=== PATIENT | female | born 1930 | race Caucasian/White ===

== ENCOUNTER → 2016-07-31 | Outpatient (CLI) | payer MEDICARE, OTHER ==
[~2016-07-31] MED LIST: AC500T PO; ACHYD1T PO; AMLO2.5T PO; ASP81CT PO; CHOL200035 PO; CLOP75TA PO; DCS100C PO; DICL50TA3 PO; HYDR-91 PO; IBP800T PO; IBUP-15 PO; IBUP-30 PO; IRON150C6 PO; LEVO88TA26 PO; METO-272 PO; NAPR220T76 PO; SULF1TAB35 PO; SULF1TAB38 PO; TRAM50TA2 PO
--- NOTE | 2016-08-02 20:28 | Diagnostic Imaging Report ---
Bilateral screening mammogram. The current study was also evaluated with a Computer Aided Detection (CAD) system. INDICATION: Screening. No current complaints stated on the questionnaire. COMPARISON: 07/08/15. FINDINGS: The breasts are composed of heterogeneously dense parenchyma which may decrease mammographic sensitivity. Vascular calcifications are seen. Other benign-appearing calcifications are also noted with minimal change. Allowing for technique and positional differences, no suspicious change is seen. IMPRESSION: Dense breasts with no definite change. ACR BI-RADS Category 2: Benign findings. Result letter will be mailed to the patient. Note: At least 10% of breast cancer is not imaged by mammography. Dictated by: Dictated on workstation # [id number]
== END ==
LOC: RAD 11:09
PROVIDERS: ATTEND Internal Medicine
DX: Z12.31 Encounter for screening mammogram for malignant neoplasm of breast (principal)
CPT/HCPCS: 77067

== ENCOUNTER 2016-08-17 07:20 | Outpatient (CLI) | payer MEDICARE, OTHER ==
[~2016-08-17] VITALS: Ht 160 cm; Wt 63.5 kg
[2016-08-17] MEDS ORDERED: BUPIVACAINE 0.25% 30 ML (SENSORCAINE) VIAL ONE (07:21)
[2016-08-17] MEDS ORDERED: LIDOCAINE 1% INJ 20 ML (XYLOCAINE) VIAL ONE (07:21)
[2016-08-17] MEDS ORDERED: TRIAMCINOLONE ACET (KENALOG-40) 40 MG/ML 1 ML VIAL ONE (07:21)
[2016-08-17 08:19] VITALS: BP 168/92
--- NOTE | 2016-08-17 12:39 | Pain Medicine-Procedure ---
Procedure Pre-Op/Post-Op Diagnosis Diagnosis: sacrococcygeal disorder Indications for Operation Hip pain Attending Surgeon Gato Procedure Date of Service: Aug 17, 2016 Procedure: Flouroscopic guided bilateral sacroiliac joint injection PROCEDURE IN DETAIL: After obtaining informed consent from the patient, the patient's chart was reviewed. The patient was then brought to the procedure room and placed in the prone position. A time out was performed. The back was prepped with antiseptic solution and under fluoroscopic guidance the patient's sacroiliac joint on both sides was identified. Attention was first turned to the right sacroiliac joint injection where 2 mL's of 1% lidocaine was used to anesthetize the skin and then two 22-gauge 3.5 inch spinal needles were inserted and advanced under flouroscopic guidance until they were in the lower 1 /3 of the right sacroiliac joint. Next, attention was then turned to the left sacroiliac joint injection where 2 mL's of 1% lidocaine was used to anesthetize the skin and then two 22-gauge 3.5 inch spinal needles were inserted and advance under flouroscopic guidance until they were in the lower 1/3 of the sacroiliac joint on the left side. After negative aspiration, each needle was injected with 40 mg of Kenalog along with 2 mL's of 0.25% marcaine. All needles were then flushed with 1% lidocaine and then removed. Band-Aids were applied to all the sites and the patient tolerated the procedure well and was taken to the recovery area in stable condition. Complications None MILADYS HEIN MD Aug 17, 2016 12:39 pm
== END 2016-08-17 08:20 ==
LOC: CARD 07:20
PROVIDERS: ATTEND Pain Medicine Pain Medicine
DX: M53.3 Sacrococcygeal disorders, not elsewhere classified (principal); M47.816 Spondylosis without myelopathy or radiculopathy, lumbar region; Z79.899 Other long term (current) drug therapy
CPT/HCPCS: 27096

== ENCOUNTER 2017-01-27 06:07 | Emergency (ER) | payer MEDICARE, OTHER ==
[~2017-01-27] VITALS: Ht 160 cm; Wt 63.5 kg
[2017-01-27 06:26] LABS: BASOPHILS # (AUTO) 0.1 10^3/uL (0.0-0.1); BASOPHILS % (AUTO) 1 % (0-10); EOSINOPHILS # (AUTO) 0.6 10^3/uL (0.0-0.3); EOSINOPHILS % (AUTO) 7 % (0-10); LYMPHOCYTES # (AUTO) 2.8 X 10^3 (1.0-4.0); LYMPHOCYTES % (AUTO) 33 % (12-44); MEAN CORPUSCULAR HEMOGLOBIN 30 PG (25-34); MEAN CORPUSCULAR HGB CONC 32 G/DL (32-36); MEAN CORPUSCULAR VOLUME 94 FL (80-99); MEAN PLATELET VOLUME 10.9 FL (7.4-10.4); MONOCYTES % (AUTO) 12 % (0-12); NEUTROPHILS % (AUTO) 47 % (42-75); PLATELET COUNT 317 10^3/uL (130-400); RED BLOOD COUNT 3.98 10^6/uL (4.35-5.85); RED CELL DISTRIBUTION WIDTH 12.6 % (10.0-14.5); WHITE BLOOD COUNT 8.5 10^3/uL (4.3-11.0)
[2017-01-27 06:37] LABS: ALANINE AMINOTRANSFERASE 18 U/L (0-55); ANION GAP 11 MMOL/L (5-14); ASPARTATE AMINO TRANSFERASE 18 U/L (5-34); BILIRUBIN,TOTAL 0.5 MG/DL (0.1-1.0); BLOOD UREA NITROGEN 38 MG/DL (7-18); BUN/CREATININE RATIO 26; CALCIUM 10.5 MG/DL (8.5-10.1); CARBON DIOXIDE 23 MMOL/L (21-32); CHLORIDE 103 MMOL/L (98-107); CREATININE SERUM 1.44 MG/DL (0.60-1.30); GFR ESTIMATED 35; GLUCOSE 101 MG/DL (70-105); POTASSIUM 4.5 MMOL/L (3.6-5.0); SODIUM 137 MMOL/L (135-145); TOTAL PROTEIN 7.2 GM/DL (6.4-8.2)
[2017-01-27 06:42] LABS: TROPONIN I < 0.30 NG/ML (<0.30)
--- NOTE | 2017-01-27 06:42 | ED Chest Pain ---
General Chief Complaint: Chest Pain Stated Complaint: NECK Nursing Triage Note: BROUGHT IN BY [facility] FOR C/O CHEST PAIN STAARTING APPROX 0100 Nursing Sepsis Screen: No Definite Risk Source: patient Exam Limitations: no limitations History of Present Illness Time seen by provider: 06:38 Initial Comments The patient is an 86-year-old white female known to me for many years. She relates that she was awakened at 0100 with pressure and pain in her left parasternal area. There was then radiation to the jaw and down the left arm. She had never experienced pain like this before. Ultimately they called the ambulance and she was brought here. The pain is abating at this time. She had taken an aspirin and was given a nitroglycerin en route. She takes metoprolol for hypertension. There is no history of cigarette smoking, diabetes, hypercholesterolemia. 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 Associated Symptoms: denies symptoms Allergies and Home Medications Allergies Coded Allergies: diclofenac potassium (Verified Allergy, Mild, RASH, 05/07/11) Home Medications Acetaminophen 500 Mg Tablet, 2 TAB PO daily prn PRN for PAIN, (Reported) prn pain Cholecalciferol (Vitamin D3) 2,000 Unit Capsule, 2,000 UNIT PO DAILY, (Reported) Iron Polysaccharides Complex 150 Mg Cap, 150 MG PO BID WITH MEALS, #60 Ref 0 Prescribed by: ELAINE GONSALEZ on 07/09/14 1111 Levothyroxine Sodium 88 Mcg Tablet, 88 MCG PO DAILY, (Reported) Metoprolol Succinate 50 Mg Tab.sr.24h, 50 MG PO DAILY, (Reported) Review of Systems Constitutional: see HPI EENTM: No Symptoms Reported Respiratory: No Symptoms Reported Cardiovascular: See HPI, Chest Pain Gastrointestinal: No Symptoms Reported Genitourinary: No Symptoms Reported Musculoskeletal: no symptoms reported Skin: no symptoms reported Psychiatric/Neurological: No Symptoms Reported Endocrine: No Symptoms Reported Hematologic/Lymphatic: No Symptoms Reported Past Befiidn-Nrsmpk-Gjzgzn Hx Patient Social History Alcohol Use: Denies Use Recreational Drug Use: No Smoking Status: Never a Smoker 2nd Hand Smoke Exposure: No Recent Foreign Travel: No Contact w/Someone Who Travel: No Recent Infectious Disease Expo: No Recent Hopitalizations: No Immunizations Up To Date Tetanus Booster (TDap): More than 5yrs Date of Pneumonia Vaccine: Jan 20, 2013 Date of Influenza Vaccine: Jan 20, 2014 Seasonal Allergies Seasonal Allergies: No Surgeries History of Surgeries: Yes (I & D ABSCESS ON LEG, left endarterectomy) Surgeries: Tonsillectomy Respiratory History of Respiratory Disorde: No Cardiovascular History of Cardiac Disorders: Yes Cardiac Disorders: Hypertension Neurological History of Neurological Disord: No Reproductive System Hx Reproductive Disorders: Yes (ANT REPAIR) Sexually Transmitted Disease: No Genitourinary History of Genitourinary Disor: No Gastrointestinal History of Gastrointestinal Di: No Musculoskeletal History of Musculoskeletal Dis: Yes Musculoskeletal Disorders: Arthritis Endocrine History of Endocrine Disorders: Yes Endocrine Disorders: Hypothyroidsim HEENT History of HEENT Disorders: No Cancer History of Cancer: No Psychosocial History of Psychiatric Problem: No Integumentary History of Skin or Integumenta: No Blood Transfusions History of Blood Disorders: No Family Medical History Family Medial History: Abdominal aortic aneurysm 19 FATHER Alcoholism 19 FATHER Cardiovascular disease 19 FATHER 19 MOTHER G8 BROTHER Hypertension 19 FATHER 19 MOTHER G8 BROTHER Myocardial infarction 19 MOTHER No Family History of: AIDS Alzheimer's disease Arthritis Asthma Cancer of mouth Colon cancer Completed stroke Dementia Diabetes mellitus Drug abuse Kidney disease Parkinson's disease Prostate cancer Psychosocial problem Respiratory disorder Seizure disorder Thyroid disease Tuberculosis Physical Exam Vital Signs Vital Sign - Last 12Hours 01/27/17 06:14 Temp 97.2 Pulse 88 Resp 18 B/P (MAP) 174/91 Pulse Ox 96 O2 Delivery Nasal Cannula O2 Flow Rate 2.0 Capillary Refill : Less Than 3 Seconds General Appearance: Mild Distress HEENT: Normal ENT Inspection Neck: Normal Inspection Respiratory: Chest Non Tender, Lungs Clear, Normal Breath Sounds, No Accessory Muscle Use, No Respiratory Distress Cardiovascular: Regular Rate, Rhythm, No Edema, No Gallop, No JVD, Normal Peripheral Pulses, Systolic Murmur (grade 2 right and left second intercostal space and left sternal border) Gastrointestinal: Normal Bowel Sounds, No Organomegaly, No Pulsatile Mass, Non Tender Extremity: Normal Capillary Refill, Normal Inspection, Normal Range of Motion, Non Tender, No Calf Tenderness, No Pedal Edema Neurologic/Psychiatric: Alert, Oriented x3, No Motor/Sensory Deficits, Normal Mood/Affect Skin: Normal Color, Warm/Dry Lymphatic: No Adenopathy Progress/Results/Core Measures Results/Orders Lab Results Laboratory Tests Test 01/27/17 06:10 01/27/17 09:09 Range/Units White Blood Count 8.5 4.3-11.0 10^3/uL Red Blood Count 3.98 L 4.35-5.85 10^6/uL Hemoglobin 12.1 11.5-16.0 G/DL Hematocrit 37 35-52 % Mean Corpuscular Volume 94 80-99 FL Mean Corpuscular Hemoglobin 30 25-34 PG Mean Corpuscular Hemoglobin Concent 32 32-36 G/DL Red Cell Distribution Width 12.6 10.0-14.5 % Platelet Count 317 130-400 10^3/uL Mean Platelet Volume 10.9 H 7.4-10.4 FL Neutrophils (%) (Auto) 47 42-75 % Lymphocytes (%) (Auto) 33 12-44 % Monocytes (%) (Auto) 12 0-12 % Eosinophils (%) (Auto) 7 0-10 % Basophils (%) (Auto) 1 0-10 % Neutrophils # (Auto) 4.0 1.8-7.8 X 10^3 Lymphocytes # (Auto) 2.8 1.0-4.0 X 10^3 Monocytes # (Auto) 1.0 0.0-1.0 X 10^3 Eosinophils # (Auto) 0.6 H 0.0-0.3 10^3/uL Basophils # (Auto) 0.1 0.0-0.1 10^3/uL Sodium Level 137 135-145 MMOL/L Potassium Level 4.5 3.6-5.0 MMOL/L Chloride Level 103 98-107 MMOL/L Carbon Dioxide Level 23 21-32 MMOL/L Anion Gap 11 5-14 MMOL/L Blood Urea Nitrogen 38 H 7-18 MG/DL Creatinine 1.44 H 0.60-1.30 MG/DL Estimat Glomerular Filtration Rate 35 BUN/Creatinine Ratio 26 Glucose Level 101 70-105 MG/DL Calcium Level 10.5 H 8.5-10.1 MG/DL Total Bilirubin 0.5 0.1-1.0 MG/DL Aspartate Amino Transf (AST/SGOT) 18 5-34 U/L Alanine Aminotransferase (ALT/SGPT) 18 0-55 U/L Alkaline Phosphatase 76 40-136 U/L Troponin I < 0.30 < 0.30 <0.30 NG/ML Total Protein 7.2 6.4-8.2 GM/DL Albumin 4.0 3.2-4.5 GM/DL My Orders Orders - JJ YO MD Cbc With Automated Diff (01/27/17 06:18) Comprehensive Metabolic Panel (01/27/17 06:18) Troponin I (01/27/17 06:18) Ekg Tracing (01/27/17 06:18) Chest 1 View, Ap/Pa Only (01/27/17 06:18) Ekg Tracing (01/27/17 09:24) Troponin I (01/27/17 10:18) Medications Given in ED Current Medications Medications Dose Ordered Sig/Aftab Route Start Time Stop Time Status Last Admin Dose Admin Metoprolol Tartrate 5 mg ONCE ONCE IV 01/27/17 09:30 01/27/17 09:31 DC 01/27/17 10:33 5 MG Vital Signs/I&O Vital Sign - Last 12Hours 01/27/17 01/27/17 06:14 06:14 Temp 97.2 Pulse 88 Resp 18 B/P (MAP) 174/91 Pulse Ox 96 O2 Delivery Nasal Cannula Room Air O2 Flow Rate 2.0 Blood Pressure Mean: 118 Departure Communication (Admissions) Progress Notes 0750 discussed the case with Dr. Greenberg who is cardiology call today. We agreed on a plan to repeat a troponin and if negative to discharge with nitroglycerin for an outpatient stress test in the morning. 0900 Dr. Greenberg here and troponin number [address] Greenberg discovered that she had a normal coronary angiogram 4 years ago and had seen PHILIPPE Chin. Therefore she is to see PHILIPPE Chin in the a.m. to schedule additional testing Impression Impression: Primary Impression: chest pain Disposition: 01 HOME, SELF-CARE Condition: Improved Departure-Patient Inst. Decision time for Depature: 11:18 Referrals: BARBY ARBOLEDA MD (PCP/Family) Primary Care Physician Patient Instructions: Chest Pain (DC) Add. Discharge Instructions: All discharge instructions reviewed with patient and/or family. Voiced understanding Take aspirin and metoprolol daily. Call PHILIPPE Chin's office, [phone], in the a.m. for an appointment tomorrow. JJ YO MD Jan 27, 2017 06:42
--- NOTE | 2017-01-27 08:02 | Diagnostic Imaging Report ---
EXAMINATION: Chest radiograph, portable AP view. DATE: January 27, 2017 at 0641 hours. INDICATION: 86-year-old female, chest pain. COMPARISON: June 23, 2014. FINDINGS: Stable overall appearance of the cardiomediastinal silhouette. There is no identified pneumothorax. There is no large pleural effusion. There is no identified focal airspace consolidation. IMPRESSION: No identified acute cardiopulmonary abnormality. Dictated by: Dictated on workstation # [id number]
[2017-01-27] MEDS ORDERED: meTOprolol 5 MG/5 ML (LOPRESSOR) VIAL IV ONE (09:30)
--- NOTE | 2017-01-27 09:30 | Consultation-Cardiology ---
HPI-Cardiology Cardiology Consultation Date of Consultation 01/27/17 Date of Admission Time Seen by Provider: 09:24 Indication: Chest pain HPI 86 years old lady with history of coronary artery disease, had a cardiac catheterization showing no obstructive disease [place] [address] Rivas. History of hypertension. Was in her usual state of health, started having chest pain described it as dull in nature on the left side of her chest radiating to the left arm persisted until around 5 a.m. when she called ambulance by the time the ambulance arrived she was feeling somewhat better, she was given aspirin and nitroglycerin with complete relief of her pain, brought to the emergency room since then did not have any further episode of chest pain, denied any palpitation, syncope or near syncopal episode, reporting mild shortness of breath on exertion which has been worsening recently. 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, prefer to go home Home Medications & Allergies Allergies: Coded Allergies: diclofenac potassium (Verified Allergy, Mild, RASH, 05/07/11) Home Medication List Reviewed: Yes LRR-Vrrwej-Gycfre Hx Patient Social History Marital Status: Employed/Student: retired Alcohol Use: Denies Use Recreational Drug Use: No Smoking Status: Never a Smoker 2nd Hand Smoke Exposure: No Recent Foreign Travel: No Recent Infectious Disease Expo: No Recent Hopitalizations: No Immunizations Up To Date Tetanus Booster (TDap): More than 5yrs Date of Pneumonia Vaccine: Jan 20, 2013 Date of Influenza Vaccine: Jan 20, 2014 Past Medical History past medical history as discussed below Family Medical History Family History: 19 FATHER Abdominal aortic aneurysm Alcoholism Cardiovascular disease Hypertension 19 MOTHER Cardiovascular disease Hypertension Myocardial infarction G8 BROTHER Cardiovascular disease Hypertension Constitutional: no symptoms reported, see HPI EENTM: see HPI, no symptoms reported Respiratory: no symptoms reported, see HPI, No cough, dyspnea on exertion, No hemoptysis, No orthopnea, No phlegm, No short of breath, No stridor, No wheezing , No other Cardiovascular: see HPI, chest pain, No edema, No Hx of Intervention, No palpitations, No syncope, No vascular heart diseas, No other Gastrointestinal: no symptoms reported, see HPI Genitourinary: no symptoms reported, see HPI Musculoskeletal: no symptoms reported, see HPI Skin: no symptoms reported, see HPI Psychiatric/Neurological: No Symptoms Reported, See HPI Reviewed Test Results Reviewed Test Results Lab Laboratory Tests Test 01/27/17 06:10 Range/Units White Blood Count 8.5 4.3-11.0 10^3/uL Red Blood Count 3.98 L 4.35-5.85 10^6/uL Hemoglobin 12.1 11.5-16.0 G/DL Hematocrit 37 35-52 % Mean Corpuscular Volume 94 80-99 FL Mean Corpuscular Hemoglobin 30 25-34 PG Mean Corpuscular Hemoglobin Concent 32 32-36 G/DL Red Cell Distribution Width 12.6 10.0-14.5 % Platelet Count 317 130-400 10^3/uL Mean Platelet Volume 10.9 H 7.4-10.4 FL Neutrophils (%) (Auto) 47 42-75 % Lymphocytes (%) (Auto) 33 12-44 % Monocytes (%) (Auto) 12 0-12 % Eosinophils (%) (Auto) 7 0-10 % Basophils (%) (Auto) 1 0-10 % Neutrophils # (Auto) 4.0 1.8-7.8 X 10^3 Lymphocytes # (Auto) 2.8 1.0-4.0 X 10^3 Monocytes # (Auto) 1.0 0.0-1.0 X 10^3 Eosinophils # (Auto) 0.6 H 0.0-0.3 10^3/uL Basophils # (Auto) 0.1 0.0-0.1 10^3/uL Sodium Level 137 135-145 MMOL/L Potassium Level 4.5 3.6-5.0 MMOL/L Chloride Level 103 98-107 MMOL/L Carbon Dioxide Level 23 21-32 MMOL/L Anion Gap 11 5-14 MMOL/L Blood Urea Nitrogen 38 H 7-18 MG/DL Creatinine 1.44 H 0.60-1.30 MG/DL Estimat Glomerular Filtration Rate 35 BUN/Creatinine Ratio 26 Glucose Level 101 70-105 MG/DL Calcium Level 10.5 H 8.5-10.1 MG/DL Total Bilirubin 0.5 0.1-1.0 MG/DL Aspartate Amino Transf (AST/SGOT) 18 5-34 U/L Alanine Aminotransferase (ALT/SGPT) 18 0-55 U/L Alkaline Phosphatase 76 40-136 U/L Troponin I < 0.30 <0.30 NG/ML Total Protein 7.2 6.4-8.2 GM/DL Albumin 4.0 3.2-4.5 GM/DL Physical Exam Vital Signs Vital Sign - Last 12Hours 01/27/17 06:14 Temp 97.2 Pulse 88 Resp 18 B/P (MAP) 174/91 Pulse Ox 96 O2 Delivery Nasal Cannula O2 Flow Rate 2.0 Capillary Refill : Less Than 3 Seconds General Appearance: No Apparent Distress, WD/WN Eyes: Bilateral Eye Normal Inspection, Bilateral Eye PERRL, Bilateral Eye EOMI HEENT: PERRL/EOMI, TMs Normal, Normal ENT Inspection, Pharynx Normal Neck: Full Range of Motion, Normal Inspection, Non Tender, Supple, Carotid Bruit Respiratory: Chest Non Tender, Lungs Clear, Normal Breath Sounds, No Accessory Muscle Use, No Respiratory Distress Cardiovascular: Regular Rate, Rhythm, No Edema, No Gallop, No JVD, No Murmur, Normal Peripheral Pulses Gastrointestinal: Normal Bowel Sounds, No Organomegaly, No Pulsatile Mass, Non Tender, Soft Back: Normal Inspection, No CVA Tenderness, No Vertebral Tenderness Extremity: Normal Capillary Refill, Normal Inspection, Normal Range of Motion, Non Tender, No Calf Tenderness, No Pedal Edema Neurologic/Psychiatric: Alert, Oriented x3, No Motor/Sensory Deficits, Normal Mood/Affect Skin: Normal Color, Warm/Dry Lymphatic: No Adenopathy A/P-Cardiology Admission Diagnosis (1) Chest pain Qualifiers: Status: Acute Assessment & Plan: Resolved after receiving sublingual nitroglycerin, reporting that the pain was improving prior to receiving the nitroglycerin, history of cardiac catheterization done in 2012 with no obstructive disease reported. EKG and cardiac enzymes are normal, we'll repeat the second set of cardiac enzymes, probably patient will benefit from having a stress test done as an outpatient, instructed her to contact Dr. Rivas's office in the morning and see him. (2) HTN (hypertension) Qualifiers: Qualified Codes: I10 - Essential (primary) hypertension Status: Acute Assessment & Plan: Has been on metoprolol 50 mg daily, blood pressure is elevated at this time, probably fairly anxious. I will give her one dose of metoprolol 5 mg IV now and monitor blood pressure response (3) Hypothyroid Qualifiers: Qualified Codes: E03.8 - Other specified hypothyroidism Status: Chronic Assessment & Plan: maintained on thyroid replacement therapy, managed by primary care physician Assessment/Plan Okay for discharge from cardiology standpoint if the second set of cardiac enzymes were negative Follow-up with Dr. Hall's office as soon as possible Planning for stress test as an outpatient Continue to monitor blood pressure Clinical Quality Measures AMI/AHF: ASA po Prior to arrival: Yes BRETT FELIX MD Jan 27, 2017 09:30
[2017-01-27 11:32] VITALS: BP 136/77
== END 2017-01-27 11:32 | disposition home or self-care (01) ==
LOC: EDUNIT# 06:07 → ER 06:09
DX: R07.2 Precordial pain (principal); I10 Essential (primary) hypertension; E03.9 Hypothyroidism, unspecified; Z82.49 Family history of ischemic heart disease and other diseases of the circulatory system
CPT/HCPCS: 36415; 71010; 80053; 84484; 85025; 93005

== ENCOUNTER → 2017-02-07 | Outpatient (CLI) | payer MEDICARE, OTHER ==
[~2017-02-07] VITALS: Ht 157.5 cm; Wt 67.1 kg
[~2017-02-07] MED LIST changes: +REGADENOSON 0.4 MG/5 ML SYR (LEXISCAN) IV ONE
[2017-02-07] MEDS: CATHETER FLUSH 10 ML SYR IV PRN ×2 (08:07→09:48)
[2017-02-07 09:43] VITALS: BP 149/94
--- NOTE | 2017-02-07 14:30 | STRESS TEST ---
DATE OF SERVICE: 02/07/2017 RESTING AND POST REGADENOSON TECHNETIUM 99M TETROFOSMIN SPECT CT IMAGING ORDERING PHYSICIAN: Holly Rivas M.D. PRIMARY PHYSICIAN: Dr. Bee. CLINICAL DIAGNOSIS: Chest discomfort. Baseline images were carried out after injection of 10.46 mCi Tetrofosmin 99M Tetrofosmin. This was followed by 0.4 mg Regadenoson and 28.6 mCi of technetium 99M Tetrofosmin for stress imaging. The electrocardiogram showed sinus rhythm at baseline and it did not change significantly with the Regadenoson infusion. The patient did not report any significant symptoms. The patient tolerated the procedure well. Review of images at rest and following stress does not indicate any significant perfusion defects consistent with significant myocardial ischemia or infarction. Gated images show normal global left ventricular systolic function and normal regional wall motion. Left ventricular ejection fraction is calculated to be 76%. Left ventricular end diastolic volume is 22 mL. TID is absent (0.82). CONCLUSIONS: 1. No evidence of any significant myocardial ischemia or infarction on this study. 2. Normal regional wall motion. 3. Normal global left ventricular systolic function with a calculated ejection fraction of 76%. 4. Normal left ventricular cavity size. Job ID: [id number] DocumentID: [id number] Dictated Date: 02/07/2017 11:47:37 E Commerce Marketing Manager Date: 02/07/2017 13:05:06 Dictated By: HOLLY RIVAS MD, MA, FACP, FACC,
== END ==
LOC: CARD 07:40
PROVIDERS: ATTEND Internal Medicine Cardiovascular Disease
DX: I65.23 Occlusion and stenosis of bilateral carotid arteries (principal); R07.89 Other chest pain; N18.3 Chronic kidney disease, stage 3 (moderate); M54.5 Low back pain
CPT/HCPCS: 78452; 93017

== ENCOUNTER → 2017-03-29 | Outpatient (CLI) | payer MEDICARE ==
[~2017-03-29] MED LIST changes: -REGADENOSON 0.4 MG/5 ML SYR (LEXISCAN) IV ONE
[2017-03-29 10:52] LABS: BASOPHILS # (AUTO) 0.1 10^3/uL (0.0-0.1); BASOPHILS % (AUTO) 1 % (0-10); EOSINOPHILS # (AUTO) 0.3 10^3/uL (0.0-0.3); EOSINOPHILS % (AUTO) 5 % (0-10); LYMPHOCYTES # (AUTO) 1.6 X 10^3 (1.0-4.0); LYMPHOCYTES % (AUTO) 27 % (12-44); MEAN CORPUSCULAR HEMOGLOBIN 30 PG (25-34); MEAN CORPUSCULAR HGB CONC 32 G/DL (32-36); MEAN CORPUSCULAR VOLUME 96 FL (80-99); MEAN PLATELET VOLUME 10.3 FL (7.4-10.4); MONOCYTES # (AUTO) 0.7 X 10^3 (0.0-1.0); MONOCYTES % (AUTO) 12 % (0-12); NEUTROPHILS # (AUTO) 3.2 X 10^3 (1.8-7.8); NEUTROPHILS % (AUTO) 56 % (42-75); PLATELET COUNT 308 10^3/uL (130-400); RED BLOOD COUNT 3.89 10^6/uL (4.35-5.85); RED CELL DISTRIBUTION WIDTH 13.9 % (10.0-14.5); RETICULOCYTE % 0.73 % (0.50-2.40); WHITE BLOOD COUNT 5.8 10^3/uL (4.3-11.0)
[2017-03-29 11:27] LABS: BAND NEUTROPHILS 0 %; BASOPHILS % (MANUAL) 1 %; EOSINOPHILS % (MANUAL) 2 %; LYMPHOCYTES % (MANUAL) 24 %; NEUTROPHILS % (MANUAL) 62 %
[2017-04-01 07:54] LABS: %SAT TOTAL IRON BINDING CAPIC 13 L % (15-50); FOLIC ACID 16.4 NG/ML (1.5-24.0); TIBC 373 UG/DL (280-380); UIBC 324 UG/DL (55-450)
== END ==
LOC: LAB 10:29
PROVIDERS: ATTEND Internal Medicine
DX: D64.9 Anemia, unspecified (principal)
CPT/HCPCS: 36415; 82607; 82746; 83540; 83550; 85007; 85027; 85045

== ENCOUNTER → 2017-08-05 | Outpatient (CLI) | payer MEDICARE ==
--- NOTE | 2017-08-05 12:17 | Diagnostic Imaging Report ---
INDICATION: Routine screening. COMPARISON: 07/31/2016 and 07/08/2015. TECHNIQUE: Screening digital mammography was performed bilaterally with a Computer Aided Detection (CAD) system. 3D tomographic images were obtained and reviewed. FINDINGS: Both breasts are heterogeneously dense, limiting the sensitivity of mammography. Scattered benign-appearing parenchymal and vascular calcifications are again noted. There is a cluster of microcalcifications within the lower aspect of the left breast, not well-seen on the prior exam. Additional views are recommended. No mass is identified. The axillae are unremarkable. IMPRESSION: There is a merging cluster of microcalcifications in the lower left breast at mid depth. Additional views including magnification and ML views are recommended. ACR BI-RADS Category 0: Incomplete. (Needs additional imaging evaluation). Result letter will be mailed to the patient. Note: At least 10% of breast cancer is not imaged by mammography. Dictated by: Dictated on workstation # [id number]
== END ==
LOC: RAD 09:17
PROVIDERS: ATTEND Internal Medicine
DX: Z12.31 Encounter for screening mammogram for malignant neoplasm of breast (principal); R92.0 Mammographic microcalcification found on diagnostic imaging of breast
CPT/HCPCS: 77067

== ENCOUNTER → 2017-08-15 | Outpatient (CLI) | payer MEDICARE ==
--- NOTE | 2017-08-15 10:23 | Diagnostic Imaging Report ---
INDICATION: Left breast calcifications. The patient presents for additional views. COMPARISON: Correlation is made with the prior screening mammogram from 07/26/2017 and 07/31/2016. TECHNIQUE: The patient returned and a 3D 90 degree lateral view as well as 2D magnification CC and ML views were obtained. The current study was also evaluated with a Computer Aided Detection (CAD) system. FINDINGS: There are several small clusters in the left breast. These appear to be mostly inferiorly located on the ML view. These are central and slightly lateral on the CC view. The multiplicity is reassuring. The calcifications appear to be primarily punctate. No associated soft tissue mass is seen. IMPRESSION: Punctate calcifications in the left breast, as described, likely benign. Even so, a followup left mammogram in 6 months is recommended to confirm stability. ACR BI-RADS Category 3: Probably benign findings. Result letter will be mailed to the patient. Note: At least 10% of breast cancer is not imaged by mammography. Dictated by: Dictated on workstation # [id number]
== END ==
LOC: RAD 09:18
PROVIDERS: ATTEND Nurse Practitioner
DX: R92.1 Mammographic calcification found on diagnostic imaging of breast (principal)

== ENCOUNTER → 2018-02-17 | Outpatient (CLI) | payer MEDICARE ==
--- NOTE | 2018-02-17 14:13 | Diagnostic Imaging Report ---
INDICATION: Six-month followup left breast calcifications. COMPARISON: Correlation is made with prior mammograms from 08/15/2017 and 08/05/2017. TECHNIQUE: 2D and 3D unilateral left diagnostic mammography was performed with CAD. FINDINGS: The left breast remains heterogeneously dense, limiting the sensitivity of mammography. Scattered benign-appearing parenchymal and vascular calcifications are again seen. The subtle microcalcifications in the lower left breast appear to be stable. No mass is seen. No new abnormality is detected. The left axilla is unremarkable. IMPRESSION: Stable left breast calcifications. The patient should return in 6 months for an additional followup. ACR BI-RADS Category 3: Probably benign findings. Result letter will be mailed to the patient. Note: At least 10% of breast cancer is not imaged by mammography. Dictated by: Dictated on workstation # [id number]
== END ==
LOC: RAD 13:27
PROVIDERS: ATTEND Internal Medicine
DX: R92.1 Mammographic calcification found on diagnostic imaging of breast (principal)

== ENCOUNTER → 2018-03-26 | Outpatient (CLI) | payer MEDICARE ==
--- NOTE | 2018-03-26 13:34 | Diagnostic Imaging Report ---
EXAMINATION: PA and lateral chest at 11:22 a.m. INDICATION: Congestion. FINDINGS: The heart size is within normal limits and stable when compared to 06/23/2014 and 01/27/2017. As noted on the prior exam, there is elevation of the right hemidiaphragm. The lungs are clear. There is no sign of failure, pneumonia, or pleural effusion to indicate an acute abnormality. The mediastinum is not widened. The osseous structures are intact. 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 IMPRESSION: There is no evidence for an acute cardiopulmonary abnormality. Dictated by: Dictated on workstation # [id number]
== END ==
LOC: RAD 10:33
PROVIDERS: ATTEND Internal Medicine
DX: R05 Cough (principal); R09.89 Other specified symptoms and signs involving the circulatory and respiratory systems; M54.9 Dorsalgia, unspecified
CPT/HCPCS: 71046

== ENCOUNTER → 2018-08-15 | Outpatient (CLI) | payer OTHER, MEDICARE ==
--- NOTE | 2018-08-18 11:36 | Diagnostic Imaging Report ---
INDICATION: Screening. Comparison made with prior examination 02/17/2018, 08/05/2017, 07/31/2016 and 07/08/2015. 3-D tomosynthesis was performed and reviewed. Findings: The fibroglandular tissue is heterogeneously dense bilaterally. There are extensive vascular calcifications. There are unchanged benign type calcifications. There is no new dominant mass, spiculated lesion or suspicious calcification identified. The skin, nipples and axilla are unremarkable. Impression: Category 2 benign ACR BI-RADS Category 2: Benign findings. Result letter will be mailed to the patient. Note: At least 10% of breast cancer is not imaged by mammography. Dictated by: Dictated on workstation # [id number]
== END ==
LOC: RAD 10:31
PROVIDERS: ATTEND Internal Medicine
DX: Z12.31 Encounter for screening mammogram for malignant neoplasm of breast (principal)
CPT/HCPCS: 77067

== ENCOUNTER → 2018-11-05 | Outpatient (CLI) | payer MEDICARE, OTHER ==
--- NOTE | 2018-11-05 13:32 | Diagnostic Imaging Report ---
PROCEDURE: MRI lumbar spine. TECHNIQUE: Multiplanar, multisequence MRI of the lumbar spine was performed without contrast. INDICATION: Back pain. FINDINGS: There is grade 1 degenerative spondylolisthesis at L4 and L5. The vertebral body heights are well-maintained. No acute fractures are identified. Conus medullaris seen at L1 is normal in appearance. At T12-L1, there is loss of disc height and signal intensity and some minimal annular bulging. There is facet disease and thickening of ligamentum flavum. There is no significant spinal or neural foraminal encroachment. At L1-L2, there is loss of disc height and signal intensity. There is broad-based annular bulging, facet disease and thickening of ligamentum flavum. There is moderate trefoil spinal stenosis and zbyw-qg-niomsmzq bilateral neural foraminal encroachment. At L2-L3, there is loss of disc height and signal intensity. There is broad-based annular bulging, facet disease and thickening of ligamentum flavum. There is moderate spinal stenosis and moderate bilateral neural foraminal encroachment. At L3-L4, there is loss of disc height and signal intensity. There are Modic changes in the endplates. There is broad-based annular bulging, facet disease and thickening of ligamentum flavum. There is severe spinal stenosis with marked encroachment upon the lateral recess bilaterally. There is moderately severe right and fbqb-ge-llidkzou left neural foraminal encroachment. At L4-L5, there is marked broad-based annular bulging, facet disease and thickening of ligamentum flavum. There is severe central spinal stenosis with marked encroachment upon the lateral recess bilaterally. There is severe right and moderate left neural foraminal encroachment. There are Modic changes in the endplates. At L5-S1, there is broad-based annular bulging, more prominent in a right paramedian distribution. There is effacement of ventral thecal sac and encroachment upon the right lateral recess and exiting nerve root. There is moderate right neural foraminal encroachment and mild left neural foraminal encroachment. The abdominal aorta is nonaneurysmal. The kidneys are normal in appearance. IMPRESSION: Diffuse lumbar spondylosis and degenerative disc disease as described in detail above. Dictated by: Dictated on workstation # [id number]
== END ==
LOC: RAD 11:23
PROVIDERS: ATTEND Nurse Practitioner
DX: M51.17 Intervertebral disc disorders with radiculopathy, lumbosacral region (principal); M47.26 Other spondylosis with radiculopathy, lumbar region; M48.061 Spinal stenosis, lumbar region without neurogenic claudication; M51.15 Intervertebral disc disorders with radiculopathy, thoracolumbar region; M43.16 Spondylolisthesis, lumbar region
CPT/HCPCS: 72148

== ENCOUNTER 2019-05-14 18:12 | Emergency (ER) | payer MEDICARE ==
[~2019-05-14] VITALS: Ht 160 cm; Wt 57.0 kg
--- NOTE | 2019-05-14 18:48 | ED Upper Extremity ---
General Chief Complaint: Upper Extremity Stated Complaint: FELL,LEFT ELBOW INJ Nursing Triage Note: PT STATES SHE WAS HELPING HER DOWN THE STEPS AND HE KNOCKED HER OVER HURTING HER LT ELBOW, STATES SHE BUMPED HER HEAD "A LITTLE BUT NOT BAD" DENIES LOC. Nursing Sepsis Screen: No Definite Risk Source: patient Exam Limitations: no limitations History of Present Illness Date Seen by Provider: May 14, 2019 Time Seen by Provider: 18:46 Initial Comments To ER with reports of a left elbow injury. She was helping her down the steps when she fell landing on a flexed left elbow. She has difficulty with range of motion due to pain and swelling at the dorsal aspect of the elbow. She is only on aspirin. She does believe that she hit her head but no headache no loss of consciousness no neck pain. Onset: just prior to arrival Severity: moderate Pain/Injury Location: left elbow Method of Injury: fell Modifying Factors: Worse With Movement Allergies and Home Medications Allergies Coded Allergies: diclofenac potassium (Verified Allergy, Mild, RASH, 05/07/11) Home Medications Acetaminophen 500 Mg Tablet, 2 TAB PO daily prn PRN for PAIN, (Reported) prn pain Cholecalciferol (Vitamin D3) 2,000 Unit Capsule, 2,000 UNIT PO DAILY, (Reported) Iron Polysaccharides Complex 150 Mg Cap, 150 MG PO BID WITH MEALS Prescribed by: ELAINE GONSALEZ on 07/09/14 1111 Levothyroxine Sodium 88 Mcg Tablet, 88 MCG PO DAILY, (Reported) Metoprolol Succinate 50 Mg Tab.sr.24h, 50 MG PO DAILY, (Reported) Patient Home Medication List Home Medication List Reviewed: Yes Review of Systems Constitutional: see HPI EENTM: see HPI Respiratory: no symptoms reported Cardiovascular: no symptoms reported Genitourinary: no symptoms reported Musculoskeletal: see HPI Skin: no symptoms reported Psychiatric/Neurological: No Symptoms Reported Past Dhvqxni-Mrzhiz-Lenjad Hx Patient Social History Alcohol Use: Denies Use Recreational Drug Use: No Smoking Status: Never a Smoker 2nd Hand Smoke Exposure: No Recent Foreign Travel: No Contact w/Someone Who Travel: No Recent Infectious Disease Expo: No Recent Hopitalizations: No Physical Abuse: No Sexual Abuse: No Mistreated: No Fear: No Immunizations Up To Date Tetanus Booster (TDap): More than 5yrs Date of Pneumonia Vaccine: Jan 20, 2013 Date of Influenza Vaccine: Jan 21, 2019 Seasonal Allergies Seasonal Allergies: No Past Medical History Surgeries: Yes (I & D ABSCESS ON LEG, left endarterectomy, RT HIP REPLACED) Orthopedic, Tonsillectomy Respiratory: No Cardiac: Yes Hypertension Neurological: No Reproductive Disorders: Yes (ANT REPAIR) Sexually Transmitted Disease: No Genitourinary: No Gastrointestinal: No Musculoskeletal: Yes Arthritis Endocrine: Yes Hypothyroidsim HEENT: No Cancer: No Psychosocial: No Integumentary: No Blood Disorders: No Family Medical History Abdominal aortic aneurysm 19 FATHER Alcoholism 19 FATHER Cardiovascular disease 19 FATHER 19 MOTHER G8 BROTHER Hypertension 19 FATHER 19 MOTHER G8 BROTHER Myocardial infarction 19 MOTHER No Family History of: AIDS Alzheimer's disease Arthritis Asthma Cancer of mouth Colon cancer Completed stroke Dementia Diabetes mellitus Drug abuse Kidney disease Parkinson's disease Prostate cancer Psychosocial problem Respiratory disorder Seizure disorder Thyroid disease Tuberculosis Physical Exam Vital Signs Vital Signs - First Documented 05/14/19 18:28 Temp 36.6 Pulse 66 Resp 20 B/P (MAP) 146/77 (100) Pulse Ox 96 O2 Delivery Room Air Capillary Refill : Less Than 3 Seconds Height, Weight, BMI Height: 5'2.00" Weight: 148lbs. 0.0oz. 67.607192zh; 22.00 BMI Method:Stated General Appearance: WD/WN, no apparent distress HEENT: PERRL/EOMI, normal ENT inspection Respiratory: no respiratory distress, no accessory muscle use Shoulder: normal inspection, non-tender Elbow/Forearm: Left, ecchymosis (traumatic olecranon bursitis noted very fluctuant overlying abrasion but no draining or otherwise open wound.), limited ROM Wrist: Yes normal inspection, Yes non-tender Hand: normal inspection, non-tender, no evidence of injury Neurologic/Psychiatric: alert, normal mood/affect, oriented x 3 Skin: normal color, warm/dry Progress/Results/Core Measures Results/Orders My Orders Orders - RUIZ UREÑA APRN Elbow, Left, 3 Views (05/14/19 18:44) Vital Signs/I&O 05/14/19 18:28 Temp 36.6 Pulse 66 Resp 20 B/P (MAP) 146/77 (100) Pulse Ox 96 O2 Delivery Room Air Blood Pressure Mean: 100 Departure Communication (Admissions) Family Conversation She actually just saw Dr. Shields yesterday for a shoulder injury. She will follow up with him, call his office tomorrow for an appointment. I placed her in a posterior long-arm splint using 3 inch Ortho-Glass and a sling. She is neurovascularly intact with normal sensation of the dorsal and palmar aspect of the ring and little finger, all fingers for that matter, normal I normal thumbs up sign and normal finger abduction and wrist extension and flexion. Brisk capillary refill. States that she did hit her head but there is no scalp hem atoma or abrasion. No tenderness to palpation. I did recommend a CT scan of the head and cervical spine. However she does not want to do that at this time and she does not have a headache dizziness nausea vomiting or neck pain or confusion. NAME: VANDANA CAMPBELL [facility] REC#: [id number] PT STATUS: REG ER : 1930 PHYSICIAN: RUIZ UREÑA APRN ADMIT DATE: 05/14/19/ER Draft Date of Exam:05/14/19 ELBOW, LEFT, 3 VIEWS INDICATION: Left elbow pain after fall. COMPARISON: None available. TECHNIQUE: Three views of the left elbow were obtained. FINDINGS: There is an acute, complete and simple fracture of the base of the olecranon. The proximal fragment is retracted approximately 1.5 cm due to pull from the triceps. No additional fracture is appreciated. Potential small elbow joint effusion. Moderate soft tissue swelling overlying the olecranon. IMPRESSION: Acute displaced olecranon fracture. Dictated on workstation # [id number] Dict: 05/14/191908 Trans: 05/14/191911 [facility] [id number] Interpreted by: MIKA STANTON MD Electronically signed by: Impression Primary Impression: Fracture of left olecranon process Qualified Codes: S52.022A - Displaced fracture of olecranon process without intraarticular extension of left ulna, initial encounter for closed fracture Disposition: HOME, SELF-CARE Condition: Stable Departure-Patient Inst. Decision time for Depature: 19:23 Referrals: BARBY SHIELDS MD, JOHN D MD (PCP/Family) Primary Care Physician Patient Instructions: Elbow Fracture (DC) Add. Discharge Instructions: Keep the arm in the splint at all times until you follow up with Dr. Shields and/or directed otherwise. Call his office tomorrow to make an appointment to be seen for follow-up. Pain medication if needed. Keep the fingers elevated as much as possible but they don't swell. Return to ER for any headache nausea vomiting or confusion or anything else that may indicate a head injury. Scripts Hydrocodone Bit/Acetaminophen (Hydrocodone/Acetaminophen 5/325mg Tablet) 1 Tab Tab 1 EACH PO Q4-6HR PRN for PAIN-MODERATE MDD 10 for 3 Days, #14 TAB Prov: RUIZ UREÑA APRN 05/14/19 Copy Copies To 1: BARBY SHIELDS MD, PETER J APRN May 14, 2019 18:48
--- NOTE | 2019-05-14 19:12 | Diagnostic Imaging Report ---
INDICATION: Left elbow pain after fall. COMPARISON: None available. TECHNIQUE: Three views of the left elbow were obtained. FINDINGS: There is an acute, complete and simple fracture of the base of the olecranon. The proximal fragment is retracted approximately 1.5 cm due to pull from the triceps. No additional fracture is appreciated. Potential small elbow joint effusion. Moderate soft tissue swelling overlying the olecranon. IMPRESSION: Acute displaced olecranon fracture. Dictated by: Dictated on workstation # [id number]
[2019-05-14] MEDS ORDERED: ACHD5005 PO (19:25)
[2019-05-14 19:48] VITALS: BP 146/77
== END 2019-05-14 19:48 | disposition home or self-care (01) ==
LOC: EDUNIT# 18:12 → ER 18:14
DX: S52.022A Displaced fracture of olecranon process without intraarticular extension of left ulna, initial encounter for closed fracture (principal); I10 Essential (primary) hypertension; E03.9 Hypothyroidism, unspecified; Z96.641 Presence of right artificial hip joint; Z82.49 Family history of ischemic heart disease and other diseases of the circulatory system; Z88.8 Allergy status to other drugs, medicaments and biological substances; Z90.89 Acquired absence of other organs; W10.9XXA Fall (on) (from) unspecified stairs and steps, initial encounter
CPT/HCPCS: 29105; 73080

== ENCOUNTER 2019-05-17 13:59 | Emergency (ER) | payer MEDICARE ==
[~2019-05-17] VITALS: Ht 160 cm; Wt 57.3 kg
[~2019-05-17 13:59] MED LIST changes: +ACHD5005 PO
--- NOTE | 2019-05-17 14:44 | ED Head Injury ---
General Chief Complaint: Trauma-Non Activation Stated Complaint: FALL Nursing Triage Note: PT BROUGHT IN BY [facility] FROM [facility] AFTER PT HAD SYNCOPAPLE EPISODE. PT WAS STANDING AT COUNTER AND FELL HITTING HEAD ON FLOOR. STATES DOES REMEMBER FEELING A LITTLE DIZZY. PT HAS HEMATOMA ON RIGHT SIDE OF HEAD. Source: patient, family Exam Limitations: no limitations History of Present Illness Date Seen by Provider: May 17, 2019 Time Seen by Provider: 14:28 Initial Comments We are EMS with reports of a syncopal event that she can manage. She had ordered food for carry out, went up to pay for the food and pick it up when she collapsed to the floor. She was feeling fine immediately before this, has been feeling fine all day and is feeling fine now. Immediately after the fall she believes her to be out of the car when fact he was right there with her. She did have a little amnesia sounds. Laceration to the scalp. EMS applied a cervical collar. Occurred: just prior to arrival Severity: moderate Location: parietal Method of Injury: direct blow, fell Loss of Consciousness: unsure Associated Systoms: Headaches Allergies and Home Medications Allergies Coded Allergies: diclofenac potassium (Verified Allergy, Mild, RASH, 05/07/11) Home Medications Acetaminophen 500 Mg Tablet, 2 TAB PO daily prn PRN for PAIN, (Reported) prn pain Cholecalciferol (Vitamin D3) 2,000 Unit Capsule, 2,000 UNIT PO DAILY, (Reported) Hydrocodone Bit/Acetaminophen 1 Tab Tab, 1 EACH PO Q4-6HR PRN for PAIN-MODERATE Prescribed by: RUIZ UREÑA on 05/14/191924 Iron Polysaccharides Complex 150 Mg Cap, 150 MG PO BID WITH MEALS Prescribed by: ELAINE GONSALEZ on 07/09/14 1111 Levothyroxine Sodium 88 Mcg Tablet, 88 MCG PO DAILY, (Reported) Metoprolol Succinate 50 Mg Tab.sr.24h, 50 MG PO DAILY, (Reported) Patient Home Medication List Home Medication List Reviewed: Yes Review of Systems Review of Systems Constitutional: see HPI Eyes: No Symptoms Reported Ears, Nose, Mouth, Throat: no symptoms reported Respiratory: no symptoms reported Cardiovascular: no symptoms reported Genitourinary: no symptoms reported Musculoskeletal: no symptoms reported Skin: no symptoms reported Psychiatric/Neurological: No Symptoms Reported Endocrine: No Symptoms Reported Hematologic/Lymphatic: No Symptoms Reported Past Zqpokkj-Fpzajt-Njypip Hx Patient Social History Alcohol Use: Denies Use Recreational Drug Use: No Smoking Status: Never a Smoker 2nd Hand Smoke Exposure: No Recent Foreign Travel: No Contact w/Someone Who Travel: No Recent Infectious Disease Expo: No Recent Hopitalizations: No Immunizations Up To Date Tetanus Booster (TDap): More than 5yrs Date of Pneumonia Vaccine: Jan 20, 2013 Date of Influenza Vaccine: Jan 21, 2019 Seasonal Allergies Seasonal Allergies: No Past Medical History Surgeries: Yes (I & D ABSCESS ON LEG, left endarterectomy, RT HIP REPLACED) Orthopedic, Tonsillectomy Respiratory: No Cardiac: Yes Hypertension Neurological: No Reproductive Disorders: Yes (ANT REPAIR) Sexually Transmitted Disease: No Genitourinary: No Gastrointestinal: No Musculoskeletal: Yes Arthritis Endocrine: Yes Hypothyroidsim HEENT: No Cancer: No Psychosocial: No Integumentary: No Blood Disorders: No Family Medical History Abdominal aortic aneurysm 19 FATHER Alcoholism 19 FATHER Cardiovascular disease 19 FATHER 19 MOTHER G8 BROTHER Hypertension 19 FATHER 19 MOTHER G8 BROTHER Myocardial infarction 19 MOTHER No Family History of: AIDS Alzheimer's disease Arthritis Asthma Cancer of mouth Colon cancer Completed stroke Dementia Diabetes mellitus Drug abuse Kidney disease Parkinson's disease Prostate cancer Psychosocial problem Respiratory disorder Seizure disorder Thyroid disease Tuberculosis Physical Exam Vital Signs Vital Signs - First Documented 05/17/19 13:59 Temp 36.0 Pulse 66 Resp 24 B/P (MAP) 103/69 (80) Pulse Ox 94 O2 Delivery Room Air Capillary Refill : Less Than 3 Seconds Height, Weight, BMI Height: 5'2.00" Weight: 148lbs. 0.0oz. 67.011414nh; 22.00 BMI Method:Stated General Appearance: WD/WN, no apparent distress, other (. She is alert and oriented, conversing with me appropriately very pleasant lady. GCS 15. She has a large laceration to the right parietal scalp. Due to the bleeding on arrival this was sutured. This measures about 3 cm. Area was anesthetized with lidocaine with epinephrine totaling 3 mL. Hair was trimmed away from the edges to better visualize the laceration. Size 4-0 Prolene was used to suture the wound edges resulting in hemostasis. Between 5 and 10 simple sutures were placed.) HEENT: PERRL/EOMI, TMs normal, other (stellate laceration right parietal scalp with pulsatile squirting of blood. ) Neck: non-tender, full range of motion; No tender lateral, No tender midline Respiratory: normal breath sounds, no respiratory distress, no accessory muscle use Extremities: normal range of motion, non-tender Psychiatric: alert, oriented x 3 Crainal Nerves: normal hearing, normal speech, PERRL Motor/Sensory: sensory deficit (tinbling right hand) Skin: normal color, warm/dry [place] Coma Score Best Eye Response: (4) Open Spontaneously Best Verbal Response: (5) Oriented Best Motor Response: (6) Obeys Commands [place] Total: 15 Progress/Results/Core Measures Results/Orders Lab Results Laboratory Tests Test 05/17/19 15:58 Range/Units White Blood Count 12.4 H 4.3-11.0 10^3/uL Red Blood Count 3.47 L 4.35-5.85 10^6/uL Hemoglobin 9.9 L 11.5-16.0 G/DL Hematocrit 32 L 35-52 % Mean Corpuscular Volume 91 80-99 FL Mean Corpuscular Hemoglobin 29 25-34 PG Mean Corpuscular Hemoglobin Concent 31 L 32-36 G/DL Red Cell Distribution Width 14.8 H 10.0-14.5 % Platelet Count 446 H 130-400 10^3/uL Mean Platelet Volume 9.6 7.4-10.4 FL Neutrophils (%) (Auto) 79 H 42-75 % Lymphocytes (%) (Auto) 11 L 12-44 % Monocytes (%) (Auto) 8 0-12 % Eosinophils (%) (Auto) 2 0-10 % Basophils (%) (Auto) 0 0-10 % Neutrophils # (Auto) 9.7 H 1.8-7.8 X 10^3 Lymphocytes # (Auto) 1.4 1.0-4.0 X 10^3 Monocytes # (Auto) 1.0 0.0-1.0 X 10^3 Eosinophils # (Auto) 0.3 0.0-0.3 10^3/uL Basophils # (Auto) 0.0 0.0-0.1 10^3/uL Prothrombin Time 13.9 12.2-14.7 SEC INR Comment 1.0 0.8-1.4 Sodium Level 138 135-145 MMOL/L Potassium Level 4.7 3.6-5.0 MMOL/L Chloride Level 103 98-107 MMOL/L Carbon Dioxide Level 23 21-32 MMOL/L Anion Gap 12 5-14 MMOL/L Blood Urea Nitrogen 28 H 7-18 MG/DL Creatinine 1.08 0.60-1.30 MG/DL Estimat Glomerular Filtration Rate 48 BUN/Creatinine Ratio 26 Glucose Level 121 H 70-105 MG/DL Calcium Level 9.4 8.5-10.1 MG/DL Corrected Calcium 9.7 8.5-10.1 MG/DL Total Bilirubin 0.6 0.1-1.0 MG/DL Aspartate Amino Transf (AST/SGOT) 23 5-34 U/L Alanine Aminotransferase (ALT/SGPT) 30 0-55 U/L Alkaline Phosphatase 79 40-136 U/L Troponin I < 0.028 <0.028 NG/ML Total Protein 6.7 6.4-8.2 GM/DL Albumin 3.6 3.2-4.5 GM/DL My Orders Orders - RUIZ UREÑA APRN Ct Head/Cervical Spine Wo (05/17/19 14:37) Ekg Tracing (05/17/19 14:41) Comprehensive Metabolic Panel (05/17/19 14:41) Cbc With Automated Diff (05/17/19 14:41) Troponin I (05/17/19 14:41) Ua Culture If Indicated (05/17/19 14:41) Protime With Inr (05/17/19 14:41) Dipht,Pertuss(Acell),Tet Adult (Boostrix (05/17/19 16:30) Medications Given in ED Current Medications Medications Dose Ordered Sig/Aftab Route Start Time Stop Time Status Last Admin Dose Admin Diphtheria/ Tetanus/Acell Pertussis 0.5 ml ONCE ONCE IM 05/17/19 16:30 05/17/19 16:31 DC 05/17/19 16:38 0.5 ML Vital Signs/I&O 05/17/19 13:59 Temp 36.0 Pulse 66 Resp 24 B/P (MAP) 103/69 (80) Pulse Ox 94 O2 Delivery Room Air Blood Pressure Mean: 80 Diagnostic Imaging Diagonstic Imaging: CT Comments NAME: VANDANA CAMPBELL Rashmi [facility] REC#: [id number] PT STATUS: REG ER : 1930 PHYSICIAN: RUIZ UREÑA CASE WORKER ADMIT DATE: 05/17/19/ER Draft Date of Exam:05/17/19 CT HEAD/CERVICAL SPINE WO PROCEDURE: CT head and CT cervical spine without contrast. TECHNIQUE: Multiple contiguous axial images were obtained through the brain and cervical spine without the use of intravenous contrast. Sagittal and coronal reformations through the cervical spine were then performed. Auto Exposure Controls were utilized during the CT exam to meet ALARA standards for radiation dose reduction. INDICATION: Fall with injury to the posterior head and neck. COMPARISON: None FINDINGS: CT HEAD: The ventricles and cortical sulci are diffusely prominent from generalized parenchymal volume loss. There are hypoattenuating areas of white matter which likely represent chronic microvascular disease. 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 There appears to be a small subarachnoid hemorrhage in the left temporal lobe. There is a 4 mm hyperdense focus in the region of the left parietal lobe which appears to be extra-axial, could represent a small subarachnoid hemorrhage or possibly a small meningioma. There is a moderate-sized scalp hematoma overlying the right parietal bone with associated laceration. No calvarium fracture is seen. CT CERVICAL SPINE: There is motion artifact in the cervical spine. There are severe degenerative changes at C1-C2, C5-C6, C6-C7, and C7-T1. There is multilevel marked facet arthropathy. There is marked spinal canal stenosis at C5-C6. There is grade 1 anterolisthesis at C4-C5 and C6-C7 and grade 1 retrolisthesis at C5-C6. There is grade 1 anterolisthesis at C2-C3. No acute fracture is seen. No bony fragments or hyperdense fluid collections are seen in the spinal canal. IMPRESSION: 1. Small subarachnoid hemorrhage in the left temporal lobe. 4 mm focus overlying the left parietal lobe may represent a small extra-axial hemorrhage or possibly a small meningioma. 2. Moderate-sized scalp hematoma overlying the right parietal lobe. No calvarium fracture is seen. 3. Severe degenerative changes throughout the cervical spine with no acute fracture seen. Findings discussed with RUIZ UREÑA by Dr. Vogel, on 05/17/2019 4:11 p.m. Dictated on workstation # [id number] Dict: 05/17/19 1552 Trans: 05/17/19 1614 [facility] [id number] Interpreted by: RESHMA VOGEL MD Electronically signed by: Departure Communication (Admissions) Dr Rodríguez accepted pt to [facility] the [facility]> Impression Primary Impression: Subarachnoid hemorrhage Additional Impressions: Scalp laceration Syncope and collapse Disposition: 01 HOME, SELF-CARE Condition: Stable Transfer Transfer Reason: Exceeds level of care Time Spoke to Accepting Phy: 16:40 Departure-Patient Inst. Referrals: BARBY ARBOLEDA MD (PCP/Family) Primary Care Physician RUIZ UREÑA APRN May 17, 2019 14:44
[2019-05-17 16:11] LABS: BASOPHILS % (AUTO) 0 % (0-10); EOSINOPHILS # (AUTO) 0.3 10^3/uL (0.0-0.3); EOSINOPHILS % (AUTO) 2 % (0-10); HEMATOCRIT 32 % (35-52); HEMOGLOBIN 9.9 G/DL (11.5-16.0); LYMPHOCYTES # (AUTO) 1.4 X 10^3 (1.0-4.0); LYMPHOCYTES % (AUTO) 11 % (12-44); MEAN CORPUSCULAR HEMOGLOBIN 29 PG (25-34); MEAN CORPUSCULAR HGB CONC 31 G/DL (32-36); MEAN CORPUSCULAR VOLUME 91 FL (80-99); MEAN PLATELET VOLUME 9.6 FL (7.4-10.4); MONOCYTES % (AUTO) 8 % (0-12); NEUTROPHILS # (AUTO) 9.7 X 10^3 (1.8-7.8); NEUTROPHILS % (AUTO) 79 % (42-75); PLATELET COUNT 446 10^3/uL (130-400); RED CELL DISTRIBUTION WIDTH 14.8 % (10.0-14.5); WHITE BLOOD COUNT 12.4 10^3/uL (4.3-11.0)
--- NOTE | 2019-05-17 16:15 | Diagnostic Imaging Report ---
PROCEDURE: CT head and CT cervical spine without contrast. TECHNIQUE: Multiple contiguous axial images were obtained through the brain and cervical spine without the use of intravenous contrast. Sagittal and coronal reformations through the cervical spine were then performed. Auto Exposure Controls were utilized during the CT exam to meet ALARA standards for radiation dose reduction. INDICATION: Fall with injury to the posterior head and neck. COMPARISON: None FINDINGS: CT HEAD: The ventricles and cortical sulci are diffusely prominent from generalized parenchymal volume loss. There are hypoattenuating areas of white matter which likely represent chronic microvascular disease. 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 There appears to be a small subarachnoid hemorrhage in the left temporal lobe. There is a 4 mm hyperdense focus in the region of the left parietal lobe which appears to be extra-axial, could represent a small subarachnoid hemorrhage or possibly a small meningioma. There is a moderate-sized scalp hematoma overlying the right parietal bone with associated laceration. No calvarium fracture is seen. CT CERVICAL SPINE: There is motion artifact in the cervical spine. There are severe degenerative changes at C1-C2, C5-C6, C6-C7, and C7-T1. There is multilevel marked facet arthropathy. There is marked spinal canal stenosis at C5-C6. There is grade 1 anterolisthesis at C4-C5 and C6-C7 and grade 1 retrolisthesis at C5-C6. There is grade 1 anterolisthesis at C2-C3. No acute fracture is seen. No bony fragments or hyperdense fluid collections are seen in the spinal canal. IMPRESSION: 1. Small subarachnoid hemorrhage in the left temporal lobe. 4 mm focus overlying the left parietal lobe may represent a small extra-axial hemorrhage or possibly a small meningioma. 2. Moderate-sized scalp hematoma overlying the right parietal lobe. No calvarium fracture is seen. 3. Severe degenerative changes throughout the cervical spine with no acute fracture seen. Findings discussed with RUIZ UREÑA by Dr. Perkins, on 05/17/2019 4:11 p.m. Dictated by: Dictated on workstation # [id number]
[2019-05-17 16:19] LABS: PROTHROMBIN TIME PATIENT 13.9 SEC (12.2-14.7)
[2019-05-17] MEDS ORDERED: TETANUS,DIPTH,PERTUSS P/F (BOOSTRIX) 0.5 ML VIAL IM ONE (16:30)
[2019-05-17 16:33] LABS: ALANINE AMINOTRANSFERASE 30 U/L (0-55); ALBUMIN 3.6 GM/DL (3.2-4.5); ALKALINE PHOSPHATASE 79 U/L (40-136); BILIRUBIN,TOTAL 0.6 MG/DL (0.1-1.0); BUN/CREATININE RATIO 26; CALCIUM 9.4 MG/DL (8.5-10.1); CARBON DIOXIDE 23 MMOL/L (21-32); CHLORIDE 103 MMOL/L (98-107); CREATININE SERUM 1.08 MG/DL (0.60-1.30); GFR ESTIMATED 48; GLUCOSE 121 MG/DL (70-105); POTASSIUM 4.7 MMOL/L (3.6-5.0); SODIUM 138 MMOL/L (135-145); TOTAL PROTEIN 6.7 GM/DL (6.4-8.2)
--- NOTE | 2019-05-17 16:53 | NUR ---
report given to cristobal hanks @ [facility]
[2019-05-17 17:15] VITALS: BP 118/66
== END 2019-05-17 17:15 | disposition home or self-care (01) ==
LOC: EDUNIT# 13:59 → ER 14:00
DX: S06.6X0A Traumatic subarachnoid hemorrhage without loss of consciousness, initial encounter (principal); S01.01XA Laceration without foreign body of scalp, initial encounter; R55 Syncope and collapse; I10 Essential (primary) hypertension; E03.9 Hypothyroidism, unspecified; Z96.641 Presence of right artificial hip joint; Z23 Encounter for immunization; Z88.8 Allergy status to other drugs, medicaments and biological substances; Z90.89 Acquired absence of other organs; W18.39XA Other fall on same level, initial encounter; W22.8XXA Striking against or struck by other objects, initial encounter
CPT/HCPCS: 12001; 36415; 70450; 72125; 80053; 84484; 85025; 85610; 90715; 93005

== ENCOUNTER → 2019-09-18 | Outpatient (CLI) | payer MEDICARE ==
--- NOTE | 2019-09-21 09:41 | Diagnostic Imaging Report ---
EXAMINATION: Digital mammogram bilateral screening with CAD. INDICATION: Screening. COMPARISON: This study is compared to the prior exams of 08/15/2018, 02/17/2018, 08/05/2017, and 07/31/2016. PERSONAL HISTORY: At this time, there are no current complaints. FINDINGS: Both breasts are heterogeneously dense. This does limit the sensitivity of this exam. In the retroareolar region of the right breast approximately 2.5 cm deep to the nipple, there is a small group of microcalcifications. These calcifications are technically indeterminate. I would recommend that a compression/magnification view of this area be performed to better evaluate these calcifications. The overall appearance of the breasts has not changed significantly otherwise. There is no primary or secondary sign of malignancy noted. IMPRESSION: Additional mammographic views of the right breast would be recommended for further study. ACR BI-RADS Category 0: Incomplete. (Needs additional imaging evaluation). Result letter will be mailed to the patient. Note: At least 10% of breast cancer is not imaged by mammography. Dictated by: Dictated on workstation # [id number]
== END ==
LOC: RAD 15:21
PROVIDERS: ATTEND Nurse Practitioner
DX: Z12.31 Encounter for screening mammogram for malignant neoplasm of breast (principal)
CPT/HCPCS: 77063; 77067

== ENCOUNTER → 2019-09-25 | Outpatient (CLI) | payer MEDICARE ==
--- NOTE | 2019-09-25 20:41 | Diagnostic Imaging Report ---
INDICATION: Unilateral right diagnostic views performed, compared with exams 06/2014, 06/2015, 07/2017 as well as 07/2018 and earlier this month The current study was also evaluated with a Computer Aided Detection (CAD) system. FINDINGS: The calcifications of interest in the anterior depth posterior to the nipple appear relatively uniform in density; they were on a non-ductal and nonbranching distribution. They do not appear particularly suspicious and appear similar to other chronic benign type calcifications, however, in light of the interval change I do feel a unilateral 6 month diagnostic follow-up on the right is appropriate. The parenchymal pattern remains heterogeneously dense, unchanged. No identifiable mass. IMPRESSION: Likely benign calcifications retroareolar right breast. Six month follow-up unilateral right diagnostic views recommended. ACR BI-RADS Category 3: Probably benign findings. Result letter will be mailed to the patient. Note: At least 10% of breast cancer is not imaged by mammography. Dictated by: Dictated on workstation # [id number]
== END ==
LOC: RAD 13:33
PROVIDERS: ATTEND Nurse Practitioner
DX: R92.8 Other abnormal and inconclusive findings on diagnostic imaging of breast (principal)

== ENCOUNTER → 2019-10-22 | Outpatient (CLI) | payer MEDICARE ==
--- NOTE | 2019-10-22 12:49 | Diagnostic Imaging Report ---
PROCEDURE: CT head without contrast. TECHNIQUE: Multiple contiguous axial images were obtained through the brain without the use of intravenous contrast. Auto Exposure Controls were utilized during the CT exam to meet ALARA standards for radiation dose reduction. INDICATION: Chronic headaches. Correlation is made with prior head CT from 05/17/2019. FINDINGS: Ventricles and sulci are appropriate for the patient's age. No sulcal effacement or midline shift is detected. No acute intra-axial or extra-axial hemorrhage is detected. Cisterns are patent. Visualized paranasal sinuses are clear. IMPRESSION: No acute intracranial process is detected. Dictated by: Dictated on workstation # [id number]
== END ==
LOC: RAD 12:02
PROVIDERS: ATTEND Internal Medicine
DX: R51 Headache (principal)
CPT/HCPCS: 70450

== ENCOUNTER 2019-10-23 04:38 | Emergency (ER) | payer MEDICARE ==
[~2019-10-23] VITALS: Ht 160 cm; Wt 58.2 kg
--- OUTSIDE RECORDS SUMMARY | 2019-10-23 04:45 | XMS REPORT ---
Author Author [facility] Address [address] [address] Care Team Providers Care Patient Registration Supervisor Name Role Phone BARBY ARBOLEDA Unavailable BARBY ARBOLEDA MD Unavailable Unavailable MILADYS HEIN MD Unavailable Unavailable SANAZ ALVAREZ, JJ Mendes Unavailable Unavailable BARBY ARBOLEDA MD Unavailable Unavailable KAHLIL ALVAREZ FAC, PHILIPPE NOEL CCDS Unavailable Unavailsahra YO MD, JJ Mendes Unavailable Unavailable MILADYS HEIN MD Unavailable Unavailable FABIAN EVANS D IT INVESTMENT/PORTFOLIO MANAGER Unavailable Unavailable ALEKS ALEJANDRE, ROSENDO K Unavailable Unavailable RUIZ UREÑA APRN Unavailable Unavailable IMELDA ALVAREZ, DANNIELLE Coleman Unavailable Unavailable LURDES LEE APRN Unavailable Unavailable Unavailable Unavailable Unavailable Unavailable Allergies No Information Medications No Information Problems Active Problems Problem Normalized Date Last Normalized Normalized Provider Fa cility Classification Problem(s) Recorded Problem Problem Sta tus Duration Residual Acquired Episodic Active NITA SAM Via codes; absence of IT INVESTMENT/PORTFOLIO MANAGER Amy unclassified other organs Hospital - (7 sources.) [place] () Other acquired Acquired Episodic Active MILADYS HEIN [facility] Via deformities (4 spondylolisthe Amy sources.) sis [facility] () Allergic Allergy status Episodic Active NITA SAM Via reactions (7 to other IT INVESTMENT/PORTFOLIO MANAGER Amy sources.) drugs, Hospital - medicaments [place] and biological () substances status Other Care involving Episodic Active VC Shanel HE Via aftercare (4 other physical Amy sources.) therapy [facility] () Chronic kidney Chronic kidney Chronic Active PHILIPPE GUILLORY , Not Available disease (9 disease, stage FAC () sources.) 3 (moderate) 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 (2 sources.) Other lower Cough Episodic Active BARBY ARBOLEDA Not Miladis ilrowdy respiratory (42916) disease (4 sources.) NEGATED Cystocele, Chronic Active HERNANDEZ Not Availab le no midline MAYI , (43089) information (2 Translations: MD sources.) [ UTERVAGINAL PROLAPSE NOS] Fracture of Displaced Episodic Active NITA SAM Vi a upper limb (3 fracture of IT INVESTMENT/PORTFOLIO MANAGER Amy sources.) [facility] - process [place] without (42[address]) intraarticular extension of left ulna, initial encounter for closed fracture NEGATED Dizziness and Episodic Active no name no infor mation no giddiness information (8 sources.) Other Encounter for 09-22-2019 - Episodic Active BARBY DUARTE R , Not Available screening for screening (54750) suspected mammogram for conditions malignant (not mental neoplasm of disorders or breast infectious Translations: disease) (22 [ OTH SCREEN sources.) MAMMO-MALIGN NEOPLASM OF ODILON, INCONCLUSIVE MAMMOGRAM, OTH ABN AND INCONCLUSIVE FINDINGS ON DX , INCONCLUSIVE MAMMOGRAM, OTH (ABN) FINDINGS ON RADIOLOGICAL EXAMI, UNSPEC ABNORMAL MAMMOGRAM] Other Enthesopathy Episodic Active NITA HE Via connective of hip region [facility] tissue disease Hospital - (5 sources.) [place] (18723) External cause Fall (on) Episodic Active NITA SAM Via codes: Fall (7 (from) IT INVESTMENT/PORTFOLIO MANAGER Amy sources.) unspecified Hospital - stairs and [place] steps, initial (34301) encounter Translations: [ OTHER FALL ON SAME LEVEL, INITIAL ENCOUN] Unclassified Family history Episodic Active JJ GEEGERS Not Available (15 sources.) of ischemic MD (00951) heart disease and other diseases of the circulatory system Open wounds of Laceration Episodic Active VC Shanel SAM Via head; neck; without IT INVESTMENT/PORTFOLIO MANAGER Amy and trunk (4 foreign body Hospital - sources.) of scalp, [place] initial (65961) encounter Other Long-term Episodic Active NITA HE Via aftercare (15 (current) use MD Reyes sources.) of other Hospital - medications [place] ([address]676) Nonmalignant Mammographic Episodic Active VC Shanel MAST Via breast microcalcifica MD [facility] conditions (10 tion found on Hospital - sources.) diagnostic [place] imaging of (15418) breast Translations: [ MAMMOGRAPHIC CALCIFCN FOUND ON DIAGNOSTI, SYMPTOMS IN BREAST NEC] Occlusion or Occlusion and Chronic Active PHILIPPE UGILLORY , No t Available stenosis of 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 (11 without sources.) mention of cerebral infarction Translations: [ OCCLUSION AND STENOSIS OF BILATERAL ALVAREZ] Other Other long Episodic Active MILADYS HEIN , Not Av ailable aftercare (15 term (current) (12339) sources.) drug therapy Other lower Other Episodic Active no name no informat ion respiratory respiratory disease (2 abnormalities sources.) Cardiac Other Chronic Active ROSSY MARAVILLA Not Avail able dysrhythmias specified (36296) (3 sources.) cardiac dysrhythmias Other Other Episodic Active BARBY ARBOLEDA , Not Avail able circulatory specified (74975) disease (4 symptoms and sources.) signs involving the circulatory and respiratory systems Other Pain in joint, Episodic Active VC Shanel HE Via non-traumatic pelvic region [facility] joint and thigh Hospital - disorders (8 [place] sources.) (63696) Other Pain in joint, Episodic Active no name no info rmation non-traumatic shoulder joint region disorders (2 sources.) Other Pain in left Episodic Active NITA SAM V ia non-traumatic elbow [facility] joint Hospital - disorders (3 [place] sources.) (72584) Other Pain in limb Episodic Active no name no inform ation connective tissue disease (2 sources.) NEGATED Palpitations Episodic Active no name no inform ation no information (8 sources.) Other 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 Hospital - (7 sources.) joint [place] ([address]) Spondylosis; Sacrococcygeal no information Active MILADYS GIRALDO TE , Not Available intervertebral disorders, not (50429) disc elsewhere disorders; classified other back Translations: problems (14 [ SPONDYLOSIS sources.) W/O MYELOPATHY OR RADICULOPA, SPONDYLOSIS W/O MYELOPATHY OR RADICULOPA] Immunizations Screening Episodic Active NITA SAM Via and screening examination KARYN Re[facility] for infectious for other Hospital - disease (8 specified [place] sources.) bacterial and (88909) spirochetal diseases Translations: [ ENCOUNTER FOR IMMUNIZATION] Spondylosis; 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 without disc myelopathy or disorders; radiculopathy, other back lumbar region problems (21 Translations: sources.) [ LUMBOSACRAL SPONDYLOSIS, CERVICAL SPONDYLOSIS, CERVICAL DISC DEGEN, LUMB/LUMBOSAC DISC DEGEN, CERVICAL SPONDYLOSIS, CERVICAL DISC DEGEN, LUMB/LUMBOSAC DISC DEGEN, OTHER SPONDYLOSIS WITH RADICULOPATHY, EVA] External cause Striking Episodic Active RUIZ UREÑA VC Via codes: Struck against or [facility] by; against (4 struck by Hospital - sources.) other objects, [place] initial (03432) encounter Syncope (4 Syncope and Episodic Active RUIZ UREÑA [facility] V ia sources.) collapse [facility] (73779) Intracranial Traumatic Episodic Active RUIZ UREÑA [facility] V ia injury (8 subarachnoid [facility] sources.) hemorrhage Hospital - without loss [place] of (72746) consciousness, initial encounter Other Unspecified Chronic Active ROSSY BAIMA Not Av ailable circulatory disorders of (75800) disease (3 arteries and sources.) arterioles Past or Other Problems Problem Normalized Date Last Normalized Normalized Provider Fa cility Classification Problem(s) Recorded Problem Problem Sta tus Duration Deficiency and Anemia, Episodic Completed no name no infor mation other anemia unspecified (2 sources.) Residual Asymptomatic Episodic Completed BARBY ARBOLEDA , Not A vailable codes; postmenopausal (35550) unclassified status (2 sources.) (age-related) (natural) Skin and Cellulitis and Episodic Completed ITZEL ZAVALA Not Available subcutaneous abscess of , (72550) tissue leg, except infections (1 foot source.) Other bone Disorder of Episodic Completed BARBY ARBOLEDA , Not A vailable disease and bone and (77190) musculoskeleta cartilage, l deformities unspecified (2 sources.) NEGATED Encounter for Episodic Completed no name no infor mation no therapeutic information (5 drug sources.) monitoring Fluid and Hyposmolality Episodic Completed no name no infor mation electrolyte and/or disorders (3 hyponatremia sources.) Translations: [ HYPERPOTASSEMI A] NEGATED Long-term Episodic Completed no name no informati on no (current) use information (5 of sources.) anticoagulants Other injuries Other Episodic Completed no name no infor mation and conditions nonspecific due to findings on external examination of causes (3 urine sources.) Other ear and Other Episodic Completed ROSSY BAIMA Not A vailable sense organ postprocedural (50856) disorders (3 status sources.) Spondylosis; Sacrococcygeal Episodic Completed MILADYS MELVINA , [facility] Via intervertebral disorders, not MD Reyes disc elsewhere Hospital - disorders; classified [place] other back Translations: (35605) problems (20 [ LOW BACK sources.) PAIN, CERVICALGIA, DORSALGIA, UNSPECIFIED, INTVRT DISC DISORDERS W RADICULOPATHY, L, OTHER SPONDYLOSIS WITH RADICULOPATHY, EVA, SPINAL STENOSIS, LUMBAR REGION WITHOUT N, INTVRT DISC DISORDERS W RADICULOPATHY, T] Other acquired Spondylolisthe Episodic Completed EVANS [facility] Via deformities (2 sis, lumbar HALLACY Amy sources.) [facility] ([address]) Procedures Procedure Normalized Procedure Procedure Result Performer Facility Date Total knee replacement no information no name no info rmation Total knee replacement no information no name Not Miladis ilable (62967) Immunizations Normalized Immunization Date Notes Care Provider Facili ty Immunization tetanus toxoid, 05-17-2019 no information no name [facility] reduced diphtheria [facility] toxoid, and (45662) acellular pertussis vaccine, adsorbed Results The data below is from unstructured sourcesNo known relevant diagnostic tests, laboratory data and/or discharge summary.No known relevant diagnostic tests, laboratory data and/or discharge summary.No known relevant diagnostic tests, laboratory data and/or discharge summary.No known relevant diagnostic tests, laboratory data and/or discharge summary.No known rel evant diagnostic tests, laboratory data and/or discharge summary.No known releva nt diagnostic tests, laboratory data and/or discharge summary.No known relevant diagnostic tests, laboratory data and/or discharge summary. Vital Signs The data below is from unstructured sources Vital Response Date/Time Temperature (Fahrenheit) 97.0 degree s F (97.6 - 99.5) 07/01/2015 7:48am Temperature (Calculated Celsius) 36. 94247 degrees C (36.4 - 37.5) 07/01/2015 7:48am Temperature Source Tympanic 07/01/2015 7:48am Pulse Rate (adult) 76 bpm (60 - 90) 07/01/2015 8:24am Respiratory Rate 16 bpm (12 - 24) 07/01/2015 8:24am O2 Sat by Pulse Oximetry 96 % (88 - 100) 07/01/2015 8:24am Blood Pressure 156/88 mm Hg 07/01/2015 8:24am Blood Pressure Mean 100 mm Hg 07/01/2015 7:48am Pain Pain Intensity 0 2015 8:24am Height (Feet) 5 feet 02/2016 7:44am Height (Inches) 3.00 inches 07/01/2015 7:44am Height (Calculated Centimeters) 160. 847124 cm 07/01/2015 7:44am Weight (Pounds) 142 pounds 07/01/2015 7:44am Weight (Calculated Grams) 21800.117 gm 07/01/2015 7:44am Weight (Calculated Kilograms) 64.410 117 kilograms 07/01/2015 7:44am Calculated BMI 25.15 02/2016 7:44am Vital Response Date/Time Temperature (Fahrenheit) 96.5 degree s F (97.6 - 99.5) 09/16/2015 11:54am Temperature (Calculated Celsius) 35. 99421 degrees C (36.4 - 37.5) 09/16/2015 11:54am Temperature Source Tympanic 09/16/2015 11:54am Pulse Rate (adult) 64 bpm (60 - 90) 09/16/2015 12:27pm Respiratory Rate 12 bpm (12 - 24) 09/16/2015 12:27pm O2 Sat by Pulse Oximetry 94 % (88 - 100) 09/16/2015 12:27pm Blood Pressure 148/83 mm Hg 09/16/2015 12:27pm Blood Pressure Mean 106 mm Hg 09/16/2015 11:54am Pain Pain Intensity 0 2015 12:27pm Height (Feet) 5 feet 11:50am Height (Inches) 3.00 inches 09/16/2015 11:50am Height (Calculated Centimeters) 160. 947536 cm 09/16/2015 11:50am Weight (Pounds) 140 pounds 09/16/2015 11:50am Weight (Ounces) 0.0 oz 0 09/16/2015 11:50am Weight (Calculated Grams) 53666.932 gm 09/16/2015 11:50am Weight (Calculated Kilograms) 63.502 932 kilograms 09/16/2015 11:50am Calculated BMI 24.8 08/21 11:50am Vital Response Date/Time Temperature (Fahrenheit) 96.1 degree s F (97.6 - 99.5) 06/10/2015 8:26am Temperature (Calculated Celsius) 35. 59844 degrees C (36.4 - 37.5) 06/10/2015 8:26am Temperature Source Tympanic 06/10/2015 8:26am Pulse Rate (adult) 74 bpm (60 - 90) 06/10/2015 9:10am Respiratory Rate 16 bpm (12 - 24) 06/10/2015 9:10am O2 Sat by Pulse Oximetry 96 % (88 - 100) 06/10/2015 9:10am Blood Pressure 177/89 mm Hg 06/10/2015 9:10am Blood Pressure Mean 116 mm Hg 06/10/2015 8:26am Pain Pain Intensity 0 2015 9:10am Height (Feet) 5 feet 8:21am Height (Inches) 2.00 inches 06/10/2015 8:21am Height (Calculated Centimeters) 157. 484802 cm 06/10/2015 8:21am Weight (Pounds) 140 pounds 06/10/2015 8:21am Weight (Calculated Grams) 75583.932 gm 06/10/2015 8:21am Weight (Calculated Kilograms) 63.502 932 kilograms 06/10/2015 8:21am Calculated BMI 25.60 8:21am Vital Response Date/Time Temperature (Fahrenheit) 96.7 degree s F (97.6 - 99.5) Temperature (Calculated Celsius) 35. 53679 degrees C (36.4 - 37.5) Temperature Source Tympanic Pulse Rate (adult) 76 bpm (60 - 90) Respiratory Rate 16 bpm (12 - 24) O2 Sat by Pulse Oximetry 98 % (88 - 100) Blood Pressure 185/102 mm Hg Pain Pain Intensity 0 Height (Feet) 5 feet Height (Inches) 3.00 inches Height (Calculated Centimeters) 160. 385655 cm Weight (Pounds) 145 pounds Weight (Calculated Grams) 88685.894 gm Weight (Calculated Kilograms) 65.770 894 kilograms Calculated BMI 25.68 Vital Response Date/Time Temperature (Fahrenheit) 97.0 degree s F (97.6 - 99.5) Temperature (Calculated Celsius) 36. 24211 degrees C (36.4 - 37.5) Temperature Source Tympanic Pulse Rate (adult) 62 bpm (60 - 90) Respiratory Rate 18 bpm (12 - 24) O2 Sat by Pulse Oximetry 96 % (88 - 100) Blood Pressure 165/99 mm Hg Pain Pain Intensity 0 Height (Feet) 5 feet Height (Inches) 3.00 inches Height (Calculated Centimeters) 160. 462471 cm Weight (Pounds) 140 pounds Weight (Calculated Grams) 68265.932 gm Weight (Calculated Kilograms) 63.502 932 kilograms Calculated BMI 24.80 Vital Response Date/Time Temperature (Fahrenheit) 98.8 degree s F (97.6 - 99.5) Temperature (Calculated Celsius) 37. 83290 degrees C (36.4 - 37.5) Temperature Source Tympanic Pulse Rate (adult) 86 bpm (60 - 90) Respiratory Rate 18 bpm (12 - 24) O2 Sat by Pulse Oximetry 95 % (88 - 100) Blood Pressure 148/74 mm Hg Pain Pain Intensity 3 Height (Feet) 5 feet Height (Inches) 3.00 inches Height (Calculated Centimeters) 160. 230724 cm Weight (Pounds) 145 pounds Weight (Calculated Grams) 79910.894 gm Weight (Calculated Kilograms) 65.770 894 kilograms Calculated BMI 25.68 Vital Response Date/Time Temperature (Fahrenheit) 97.2 degree s F (97.6 - 99.5) 01/27/2017 6:14am Temperature (Calculated Celsius) 36. 17746 degrees C (36.4 - 37.5) 01/27/2017 6:14am Temperature Source Temporal 01/27/2017 6:14am Pulse Rate (adult) 58 bpm (60 - 90) 01/27/2017 11:32am Respiratory Rate 18 bpm (12 - 24) 01/27/2017 11:32am O2 Sat by Pulse Oximetry 94 % (88 - 100) 01/27/2017 11:32am Blood Pressure 136/77 mm Hg 01/27/2017 11:32am Blood Pressure Mean 118 mm Hg 01/27/2017 6:14am Pain Numeric Pain Scale 0-No Pain 01/27/2017 11:32am Height (Feet) 5 feet 11/2016 6:14am Height (Inches) 3.00 inches 01/27/2017 6:14am Height (Calculated Centimeters) 160. 249322 cm 01/27/2017 6:14am Height Method Stated 11/2016 6:14am Weight (Pounds) 140 pounds 01/27/2017 6:14am Weight (Calculated Kilograms) 63.502 932 kilograms 01/27/2017 6:14am Weight Method Stated 11/2016 6:14am Capillary Refill Capillary Refill Less Than 3 Seconds 01/27/2017 6:14am Height 5 ft 3 in 017 6:14am Weight 140 lb 01/27/2017 6:14am Body Mass Index 24.8 kg/m^2 01/27/2017 6:14am Vital Response Date/Time Temperature (Fahrenheit) 97.2 degree s F (97.6 - 99.5) 01/27/2017 6:14am Temperature (Calculated Celsius) 36. 05796 degrees C (36.4 - 37.5) 01/27/2017 6:14am Temperature Source Temporal 01/27/2017 6:14am Pulse Rate (adult) 58 bpm (60 - 90) 01/27/2017 11:32am Respiratory Rate 18 bpm (12 - 24) 01/27/2017 11:32am O2 Sat by Pulse Oximetry 94 % (88 - 100) 01/27/2017 11:32am Blood Pressure 136/77 mm Hg 01/27/2017 11:32am Blood Pressure Mean 118 mm Hg 01/27/2017 6:14am Pain Numeric Pain Scale 0-No Pain 01/27/2017 11:32am Height (Feet) 5 feet 11/2016 6:14am Height (Inches) 3.00 inches 01/27/2017 6:14am Height (Calculated Centimeters) 160. 760437 cm 01/27/2017 6:14am Height Method Stated 11/2016 6:14am Weight (Pounds) 140 pounds 01/27/2017 6:14am Weight (Calculated Kilograms) 63.502 932 kilograms 01/27/2017 6:14am Weight Method Stated 11/2016 6:14am Capillary Refill Capillary Refill Less Than 3 Seconds 01/27/2017 6:14am Height 5 ft 3 in 017 6:14am Weight 140 lb 01/27/2017 6:14am Body Mass Index 24.8 kg/m^2 01/27/2017 6:14am Interventions No Information Plan of Treatment Normalized Care Care Detail Care Activity Date Care Provider F acility Activity Patient encounter no information 02-17-2018 BARBY ARBOLEDA MD Not Available (94222) Goals No Information Social History The data below is from unstructured sources History Response Recorde d Date/Time Hx Family Cancer N 03/05 2:20pm Hx Family Cardiac Disorders Y BRO [facility] D BYPASS 03/05/11 2:20pm Hx Family Myocardial Infarction Y MOM/DAD 03/05/11 2:20pm Functional Status The data below is from unstructured sourcesNo functional status results.No functional status results.No functional status results.No functional status results.No functional status results.No functional status results.No functional status results.No functional status results.No functional status results.No functional status results.No functional status results.No functional status information available.No functional status information avail able. Mental Status No Information Encounters Encounter Normalized Encounter Encounter Diagnosis Care Provi fabi Organization Date Type 05-17-2019 Emergency department no information RUIZ Sin PRN (no [facility] - patient visit phone) [facility] 05-17-2019 (no phone) 05-14-2019 Emergency department no information RUIZ Sin PRN (no [facility] - patient visit phone) [facility] 05-14-2019 (no phone) 02-17-2018 Patient encounter no information no name no or ganization name 08-15-2017 Patient encounter no information no name no or ganization name 08-05-2017 Patient encounter no information no name no or ganization name NEGATED Patient encounter no information no name no or ganization name 03-29-2017 02-25-2017 Patient encounter no information no name no or ganization name 02-07-2017 Patient encounter no information no name no or ganization name 01-27-2017 Patient encounter no information no name no or ganization name 08-17-2016 Patient encounter no information no name no or ganization name - 08-17-2016 07-31-2016 Patient encounter no information no name no or ganization name NEGATED Patient encounter no information no name no or ganization name 07-08-2015 NEGATED Patient encounter no information no name no or ganization name 02-11-2015 NEGATED Patient encounter no information no name no or ganization name 07-29-2014 NEGATED Patient encounter no information no name no or ganization name 07-22-2014 NEGATED Patient encounter no information no name no or ganization name 07-15-2014 11-04-2013 Patient encounter no information no name no or ganization name - 11-04-2013 09-28-2013 Patient encounter no information no name no or ganization name - 09-28-2013 07-17-2013 Patient encounter no information no name no or ganization name 07-10-2013 Patient encounter no information no name no or ganization name 06-09-2013 Patient encounter no information no name no or ganization name 02-20-2013 Patient encounter no information no name no or ganization name 12-19-2012 Patient encounter no information no name no or ganization name - 12-19-2012 NEGATED Patient encounter no information no name no or ganization name 11-21-2012 - 02-19-2013 NEGATED Patient encounter no information no name no or ganization name 07-17-2012 NEGATED Patient encounter no information no name no or ganization name 04-25-2012 09-25-2019 Patient encounter no information LURDES BOBBY RN [facility] procedure (no phone) [facility] (no phone) 09-18-2019 Patient encounter no information LURDES BOBBY RN [facility] procedure (no phone) [facility] (no phone) 05-17-2019 Patient encounter no information no name no or ganization name procedure 05-14-2019 Patient encounter no information no name no or ganization name procedure 11-05-2018 Patient encounter no information no name no or ganization name procedure 11-05-2018 Patient encounter no information no name no or ganization name procedure 08-15-2018 Patient encounter no information no name no or ganization name procedure 03-26-2018 Patient encounter no information no name no or ganization name procedure 07-10-2013 Patient encounter no information no name no or ganization name procedure 10-23-2011 Patient encounter no information no name no or ganization name procedure 04-18-2011 Patient encounter no information no name no or ganization name procedure 04-12-2011 Patient encounter no information no name no or ganization name procedure 03-05-2011 Patient encounter no information no name no or ganization name - procedure 03-06-2011 02-26-2011 Patient encounter no information no name no or ganization name procedure Patient encounter no information no name no organizat ion name procedure no information Other specified no name no organizatio n name pre-operative examination NEGATED no information Pre-procedural no name no organ ization name laboratory examination no information Pre-operative no name no organization name cardiovascular examination Medical Equipment No Information Payers The data below is from unstructured sources Payer Name Policy Number Subscriber Name Relationship [employer] Medicare [id number] Vandana Ortega R 01 Self / Same As Patient [facility] [id number] ValentineJanuary 02 Advance Directives Directive Response Recor ded Date/Time Advance Directives Yes 0 07/01/15 7:44am Health Care Power of Muffler Installer No 07/01/15 7:44am Organ Donor Yes 07/01/15 7:44am Resuscitation Status Full Code 07/01/15 7:44am Directive Response Recor ded Date/Time Advance Directives Yes 0 09/16/15 11:50am Health Care Power of Muffler Installer No 09/16/15 11:50am Organ Donor Yes 09/16/15 11:50am Resuscitation Status Full Code 09/16/15 11:50am Directive Response Recor ded Date/Time Advance Directives Yes 0 06/10/15 8:21am Health Care Power of Muffler Installer No 06/10/15 8:21am Organ Donor Yes 06/10/15 8:21am Resuscitation Status Full Code 06/10/15 8:21am Directive Response Recor ded Date/Time Advance Directives No 9:18am Health Care Power of Muffler Installer No 01/29/14 9:18am Organ Donor Yes 01/29/14 9:18am Resuscitation Status Full Code 01/29/14 9:18am Directive Response Recor ded Date/Time Advance Directives Yes 0 10/01/14 8:04am Health Care Power of Muffler Installer No 10/01/14 8:04am Organ Donor Yes 10/01/14 8:04am Resuscitation Status Full Code 10/01/14 8:04am Directive Response Recor ded Date Advance Directives N 2:33pm Health Care Power of Muffler Installer N 12/19/12 2:33pm Organ Donor N 12/19/12 2 :33pm Directive Response Recor ded Date/Time Advance Directives Yes 0 07/06/14 10:25am Health Care Power of Muffler Installer No 07/06/14 10:25am Organ Donor Yes 07/06/14 10:25am Resuscitation Status Full Code 07/06/14 10:25am Directive Response Recor ded Date/Time Advance Directives Yes 1 6:14am Health Care Power of Muffler Installer No 01/27/17 6:14am Organ Donor Yes 01/27/17 6:14am Resuscitation Status Full Code 01/27/17 6:14am Discharge Instructions No hospital discharge instructions.No hospital discharge instructions.No hospital discharge instructions.No hospital discharge instructions.No hospital discharge instructions. Patient Instructions Physician Instructions New, Converted or Re-Newed RX: RX on Chart Patient Instructions See knee DC instructions Goal/Follow Up Appt.: f/u 2 1/2 weeks Patient Instructions: please teach patient how to perform dressing changes and give her some island dressings Walking Assistive Device: Walker Elevate Extremity: Elevate Above Heart Driving Instructions: No Driving/Refer to Dr. Juarez Diet: No Restrictions Symptoms to Report to Physicia: Bleeding Excessive, Fever Over 101 Degrees F, Dizziness/Fainting, Nausea/Vomiting, Shortness of Breath If Any Problems/Questions/Issu: Contact Your Physician Infection Signs and Symptoms: Foul Odor of Wound, Increased Drainage, Temperature Above 101 F Bathing Instructions: Shower Operative Area Clean and Dry: You May Remove Bandage Stitches/Lyssa/Dermabond Dis: Care of Lyssa Polar Care: Yes-As Instructed No hospital discharge instruction information available. Additional Source Comments This clinical document has been generated using [employer] software that has been certified by the Office of the National Coordinator for Health Information Technology (ONC 15.99.04.3023.Diam.31.00.0.533723) and the National Committee for Link [employer]er (NCQA, as an eMeasure certified technology). FOR RECORDS PERTAINING TO PATIENTS WHO ARE OR HAVE BEEN ENROLLED IN A CHEMICAL D EPENDENCY/SUBSTANCE ABUSE PROGRAM, SOME INFORMATION MAY BE OMITTED. This clinica l summary was aggregated from multiple sources. Caution should be exercised in using it in the provision of clinical care. This summary normalizes information from multiple sources, and as a consequence, information in this document may ma terially change the coding, format and clinical context of patient data. In [place] t[place], data may be omitted in some cases. CLINICAL DECISIONS SHOULD BE BASED ON T HE PRIMARY CLINICAL RECORDS. [facility]. provides no warranty or guara ntee of the accuracy or completeness of information in this document.The followi information is based on time limited clinical information
--- OUTSIDE RECORDS SUMMARY | 2019-10-23 04:46 | XMS REPORT | Continuity of Care Document ---
Author Organization Unknown Address Unknown Phone Unavailable Allergies Active Description Code Type Severity Reaction Onset Reported/Identified Relationship to Patient Clinical Status Yes diclofenac potassium [id number] Drug Allergy Mild RASH 05/07/2011 Medications There is no data. 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 05/07/2011 Ot 682.6 CELL ULITIS OF LEG 12/19/2012 KAHLIL ALVAREZ FACC, ALI FACP CCDS Ot 244.9 HYPOTHYROIDISM NOS 12/19/2012 KAHLIL ALVAREZ FACC, ALI FACP CCDS Ot 433.10 CAROTID ARTERY OCCLUSION W O CEREBRAL IN 12/19/2012 KAHLIL ALVAREZ FACC, ALI FACP CCDS Ot 719.41 JOINT PAIN-SHLDER 12/19/2012 KAHLIL ALVAREZ FACC, ALI FACP CCDS Ot 729.5 PAIN IN LIMB 12/19/2012 KAHLIL ALVAREZ FACC, ALI FACP CCDS Ot 746.85 CORONARY ARTERY ANOMALY 12/19/2012 KAHLIL ALVAREZ FACC, ALI FACP CCDS Ot 780.4 DIZZINESS AND GIDDINESS 12/19/2012 KAHLIL ALVAREZ FACC, ALI FACP CCDS Ot 785.1 PALPITATIONS 12/19/2012 PHILIPPE GUILLORY MD, FACC FACP CCDS Ot 786.09 RESPIRATORY ABNORM NEC 12/19/2012 KAHLIL ALVAREZ FACC ALI FACP CCDS Ot V58.69 OTH MED,LT,CURRENT USE 02/19/2013 BARBY ARBOLEDA MD Ot 780.4 DIZZINESS AND GIDDINESS 02/19/2013 BARBY ARBOLEDA MD Ot 785.1 PALPITATIONS 09/28/2013 MILADYS HEIN MD Ot 721. 0 CERVICAL SPONDYLOSIS 09/28/2013 MILADYS HEIN MD Ot 721. 3 LUMBOSACRAL SPONDYLOSIS 09/28/2013 MILADYS HEIN MD Ot 722. 4 CERVICAL DISC DEGEN 09/28/2013 MILADYS HEIN MD Ot 722. 52 LUMB/LUMBOSAC DISC DEGEN 09/28/2013 MILADYS HEIN MD Ot V58. 69 OTH MED,LT,CURRENT USE 11/04/2013 MILADYS HEIN MD Ot 723. 1 CERVICALGIA 11/04/2013 MILADYS HEIN MD Ot V57. 1 PHYSICAL THERAPY NEC 01/29/2014 MILADYS HEIN MD Ot 721. 0 CERVICAL SPONDYLOSIS 01/29/2014 MILADYS HEIN MD Ot 721. 3 LUMBOSACRAL SPONDYLOSIS 01/29/2014 MILADYS HEIN MD Ot 726. 5 ENTHESOPATHY OF HIP 01/29/2014 MILADYS HEIN MD Ot V58. 69 OTH MED,LT,CURRENT USE 06/14/2014 Ot 244.9 06/14/2014 Ot 401.9 06/14/2014 Ot 427.89 06/14/2014 Ot 447.9 06/14/2014 Ot V45.89 06/14/2014 Ot 244.9 06/14/2014 Ot 401.9 06/14/2014 Ot 427.89 06/14/2014 Ot 447.9 06/14/2014 Ot V45.89 06/15/2014 Ot 244.9 06/15/2014 Ot 401.9 06/15/2014 Ot 427.89 06/15/2014 Ot 447.9 06/15/2014 Ot V45.89 06/15/2014 Ot 244.9 06/15/2014 Ot 401.9 06/15/2014 Ot 427.89 06/15/2014 Ot 447.9 06/15/2014 Ot V45.89 07/09/2014 Ot 276.1 HYPO SMOLALITY 07/09/2014 Ot 276.7 HYPE RPOTASSEMIA 07/09/2014 Ot 285.1 AC P OSTHEMORRHAG ANEMIA 07/09/2014 Ot 715.36 LOC OSTEOARTH NOS-L/LEG 07/20/2014 Ot 715.36 07/20/2014 Ot 791.9 07/20/2014 Ot V72.63 07/20/2014 Ot V72.83 07/20/2014 Ot V74.8 07/23/2014 Ot 715.36 07/23/2014 Ot 791.9 07/23/2014 Ot V72.63 07/23/2014 Ot V72.83 07/23/2014 Ot V74.8 07/29/2014 Ot V76.12 08/04/2014 LURDES LEE APRN Ot 611.79 08/06/2014 ADILSON DO, MAXIMILIANO F Ot V58.61 08/06/2014 ADILSON DO, MAXIMILIANO F Ot V58.83 08/18/2014 ADILSON DO, MAXIMILIANO F Ot V58.61 08/18/2014 ADILSON DO, MAXIMILIANO F Ot V58.83 08/24/2014 LURDES LEE OCEAN LIFEGUARD Ot 611.79 09/18/2014 LURDES LEE APRN Ot 611.79 10/01/2014 MILADYS HEIN MD Ot 721. 3 LUMBOSACRAL SPONDYLOSIS 03/10/2015 MILADYS HEIN MD Ot M47.816 03/10/2015 MILADYS HEIN MD Ot Z79.899 03/22/2015 MILADYS HEIN MD Ot M47.816 03/22/2015 MILADYS HEIN MD Ot Z79.899 06/10/2015 MILADYS HEIN MD Ot M47.816 SPONDYLOSIS W/O MYELOPATHY OR RADICULOPA 06/10/2015 MILADYS HENI MD Ot Z79.899 OTHER INTERMEDIATE (CURRENT) DRUG THERAPY 06/15/2015 Ot 722.4 06/15/2015 Ot 722.52 06/15/2015 Ot 793.80 06/15/2015 Ot V76.12 06/15/2015 Ot 780.4 06/15/2015 Ot 785.1 06/15/2015 BARBY ARBOLEDA MD Ot V76.1 2 06/15/2015 MILADYS HEIN MD Ot 719. 45 06/15/2015 MILADYS HEIN MD Ot 721. 0 06/15/2015 MILADYS HEIN MD, Ot 721. 3 06/15/2015 MILADYS HEIN MD Ot 722. 52 06/15/2015 MILADYS HEIN MD Ot V58. 69 06/15/2015 MILADYS HEIN MD Ot 721. 3 06/15/2015 MILADYS HEIN MD Ot 715. 35 06/15/2015 MILADYS HEIN MD, Ot 719. 45 06/15/2015 MILADYS HEIN MD Ot 721. 0 06/15/2015 MILADYS HEIN MD Ot 722. 52 06/15/2015 MILADYS HEIN MD Ot 738. 4 07/01/2015 MILADYS HEIN MD Ot M47.816 SPONDYLOSIS W/O MYELOPATHY OR RADICULOPA 07/01/2015 MILADYS HEIN MD Ot M53. 3 SACROCOCCYGEAL DISORDERS, NOT ELSEWHERE 07/01/2015 MILADYS HEIN MD Ot Z79.899 OTHER INTERMEDIATE (CURRENT) DRUG THERAPY 07/11/2015 NKECHI ALVAREZ, BARBY Coleman Ot Z12.3 1 07/14/2015 BARBY ARBOLEDA MD Ot Z12.3 1 07/28/2015 BARBY ARBOLEDA MD Ot Z12.3 1 09/16/2015 MILADYS HEIN MD Ot M53. 3 SACROCOCCYGEAL DISORDERS, NOT ELSEWHERE 09/29/2015 MILADYS HEIN MD Ot M53. 3 SACROCOCCYGEAL DISORDERS, NOT ELSEWHERE 09/29/2015 MILADYS HEIN MD Ot M53. 3 SACROCOCCYGEAL DISORDERS, NOT ELSEWHERE 04/22/2016 Ot 733.90 BON E CARTILAGE DIS NOS 04/22/2016 Ot V49.81 ASY MPT POSTMENOPAUSAL STATUS (AGE-RELATE 07/31/2016 Ot 618.01 CYS TOCELE, MIDLINE 07/31/2016 Ot V72.63 PRE -PROCEDURAL LABORATORY EXAMINATION 07/31/2016 Ot V72.81 [id number] CARDIOVASCULAR 07/31/2016 Ot V74.8 SCRE EN-BACTERIAL DIS NEC 07/31/2016 Ot 722.4 CERV ICAL DISC DEGEN 07/31/2016 Ot 722.52 LUM B/LUMBOSAC DISC DEGEN 07/31/2016 Ot 733.90 BON E CARTILAGE DIS NOS 07/31/2016 Ot V49.81 ASY MPT POSTMENOPAUSAL STATUS (AGE-RELATE 07/31/2016 Ot 793.82 INC ONCLUSIVE MAMMOGRAM 07/31/2016 Ot V76.12 OTH SCREEN MAMMO- MALIGN NEOPLASM OF [place] 07/31/2016 Ot 793.89 OTH (ABN) FINDINGS ON RADIOLOGICAL EXAMI 07/31/2016 Ot 793.80 UNS PEC ABNORMAL MAMMOGRAM 07/31/2016 Ot V76.12 OTH SCREEN MAMMO- MALIGN NEOPLASM OF [place] 07/31/2016 Ot 780.4 DIZZ INESS AND GIDDINESS 07/31/2016 Ot 785.1 PALP ITATIONS 07/31/2016 BARBY ARBOLEDA MD Ot V76.1 2 OTH SCREEN MAMMO-MALIGN NEOPLASM OF [place] 07/31/2016 MILADYS HEIN MD Ot 719. 45 JOINT PAIN-PELVIS 07/31/2016 MILADYS HEIN MD Ot 721. 0 CERVICAL SPONDYLOSIS 07/31/2016 MILADYS HEIN MD Ot 721. 3 LUMBOSACRAL SPONDYLOSIS 07/31/2016 MILADYS HEIN MD Ot 722. 52 LUMB/LUMBOSAC DISC DEGEN 07/31/2016 MILADYS HEIN MD Ot V58. 69 OTH MED,LT,CURRENT USE 07/31/2016 MILADYS HEIN MD Ot 721. 3 LUMBOSACRAL SPONDYLOSIS 07/31/2016 MILADYS HEIN MD Ot 715. 35 LOC OSTEOARTH NOS-PELVIS 07/31/2016 MILADYS HEIN MD Ot 719. 45 JOINT PAIN-PELVIS 07/31/2016 MILADYS HEIN MD Ot 721. 0 CERVICAL SPONDYLOSIS 07/31/2016 MILADYS HEIN MD Ot 722. 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 07/31/2016 Ot 715.36 LOC OSTEOARTH NOS-L/LEG 07/31/2016 Ot 791.9 ABN URINE FINDINGS NEC 07/31/2016 Ot V72.63 PRE -PROCEDURAL LABORATORY EXAMINATION 07/31/2016 Ot V72.83 EXA M PRE- OPERATIVE NEC 07/31/2016 Ot V74.8 SCRE EN-BACTERIAL DIS NEC 07/31/2016 Ot 244.9 HYPO THYROIDISM NOS 07/31/2016 Ot 401.9 HYPE RTENSION NOS 07/31/2016 Ot 427.89 CAR DIAC DYSRHYTHMIAS NEC 07/31/2016 Ot 447.9 BIBI RIAL DISEASE NOS 07/31/2016 Ot V45.89 POS TSURGICAL STATES NEC 07/31/2016 Ot V76.12 OTH SCREEN MAMMO- MALIGN NEOPLASM OF [place] 07/31/2016 MAXIMILIANO DE ANDA DO Ot V58.61 ANTICOAGULANTS,LT,CURRENT USE 07/31/2016 MAXIMILIANO DE ANDA DO Ot V58.83 ENCOUNTER FOR THERAPEUTIC DRUG MONITORIN 07/31/2016 MAXIMILIANO DE ANDA DO Ot V58.61 ANTICOAGULANTS,LT,CURRENT USE 07/31/2016 MAXIMILIANO DE ANDA DO Ot V58.83 ENCOUNTER FOR THERAPEUTIC DRUG MONITORIN 07/31/2016 ROSA LURDES Caraballo APRN Ot 611.79 SYMPTOMS IN BREAST NEC 07/31/2016 MILADYS HEIN MD Ot M47.816 SPONDYLOSIS W/O MYELOPATHY OR RADICULOPA 07/31/2016 MILADYS HEIN MD Ot Z79.899 OTHER INTERMEDIATE (CURRENT) DRUG THERAPY 07/31/2016 BARBY ARBOLEDA MD Ot Z12.3 1 ENCNTR SCREEN MAMMOGRAM FOR MALIGNANT NE 07/31/2016 BARBY ARBOLEDA MD Ot Z12.3 1 ENCNTR SCREEN MAMMOGRAM FOR MALIGNANT NE 07/31/2016 BARBY ARBOLEDA MD Ot Z12.3 1 ENCNTR SCREEN MAMMOGRAM FOR MALIGNANT NE 07/31/2016 BARBY ARBOLEDA MD Ot Z12.3 1 ENCNTR SCREEN MAMMOGRAM FOR MALIGNANT NE 08/17/2016 Ot 618.01 CYS TOCELE, MIDLINE 08/17/2016 Ot V72.63 PRE -PROCEDURAL LABORATORY EXAMINATION 08/17/2016 Ot V72.81 [id number] CARDIOVASCULAR 08/17/2016 Ot V74.8 SCRE EN-BACTERIAL DIS NEC 08/17/2016 Ot 722.4 CERV ICAL DISC DEGEN 08/17/2016 Ot 722.52 LUM B/LUMBOSAC DISC DEGEN 08/17/2016 Ot 733.90 BON E CARTILAGE DIS NOS 08/17/2016 Ot V49.81 ASY MPT POSTMENOPAUSAL STATUS (AGE-RELATE 08/17/2016 Ot 793.82 INC ONCLUSIVE MAMMOGRAM 08/17/2016 Ot V76.12 OTH SCREEN MAMMO- MALIGN NEOPLASM OF [place] 08/17/2016 Ot 793.89 OTH (ABN) FINDINGS ON RADIOLOGICAL EXAMI 08/17/2016 Ot 793.80 UNS PEC ABNORMAL MAMMOGRAM 08/17/2016 Ot V76.12 OTH SCREEN MAMMO- MALIGN NEOPLASM OF [place] 08/17/2016 Ot 780.4 DIZZ INESS AND GIDDINESS 08/17/2016 Ot 785.1 PALP ITATIONS 08/17/2016 BARBY ARBOLEDA MD Ot V76.1 2 OTH SCREEN MAMMO-MALIGN NEOPLASM OF [place] 08/17/2016 MILADYS HEIN MD Ot 719. 45 JOINT PAIN-PELVIS 08/17/2016 MILADYS HEIN MD Ot 721. 0 CERVICAL SPONDYLOSIS 08/17/2016 MILADYS HEIN MD Ot 721. 3 LUMBOSACRAL SPONDYLOSIS 08/17/2016 MILADYS HEIN MD Ot 722. 52 LUMB/LUMBOSAC DISC DEGEN 08/17/2016 MILADYS HEIN MD Ot V58. 69 OTH MED,LT,CURRENT USE 08/17/2016 MILADYS HEIN MD Ot 721. 3 LUMBOSACRAL SPONDYLOSIS 08/17/2016 MILADYS HEIN MD Ot 715. 35 LOC OSTEOARTH NOS-PELVIS 08/17/2016 MILADYS HEIN MD Ot 719. 45 JOINT PAIN-PELVIS 08/17/2016 MILADYS HEIN MD Ot 721. 0 CERVICAL SPONDYLOSIS 08/17/2016 MILADYS HEIN MD Ot 722. 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 08/17/2016 Ot 715.36 LOC OSTEOARTH NOS-L/LEG 08/17/2016 Ot 791.9 ABN URINE FINDINGS NEC 08/17/2016 Ot V72.63 PRE -PROCEDURAL LABORATORY EXAMINATION 08/17/2016 Ot V72.83 EXA M PRE- OPERATIVE NEC 08/17/2016 Ot V74.8 SCRE EN-BACTERIAL DIS NEC 08/17/2016 Ot 244.9 HYPO THYROIDISM NOS 08/17/2016 Ot 401.9 HYPE RTENSION NOS 08/17/2016 Ot 427.89 CAR DIAC DYSRHYTHMIAS NEC 08/17/2016 Ot 447.9 BIBI RIAL DISEASE NOS 08/17/2016 Ot V45.89 POS TSURGICAL STATES NEC 08/17/2016 Ot V76.12 OTH SCREEN MAMMO- MALIGN NEOPLASM OF [place] 08/17/2016 MAXIMILIANO DE ANDA DO Ot V58.61 ANTICOAGULANTS,LT,CURRENT USE 08/17/2016 MAXIMILIANO DE ANDA DO Ot V58.83 ENCOUNTER FOR THERAPEUTIC DRUG MONITORIN 08/17/2016 MAXIMILIANO DE ANDA DO Ot V58.61 ANTICOAGULANTS,LT,CURRENT USE 08/17/2016 MAXIMILIANO DE ANDA DO Ot V58.83 ENCOUNTER FOR THERAPEUTIC DRUG MONITORIN 08/17/2016 LURDES LEE APRN Ot 611.79 SYMPTOMS IN BREAST NEC 08/17/2016 MILADYS HEIN MD Ot M47.816 SPONDYLOSIS W/O MYELOPATHY OR RADICULOPA 08/17/2016 MILADYS HEIN MD Ot Z79.899 OTHER INFECTION CONTROL COORDINATOR (CURRENT) DRUG THERAPY 08/17/2016 BARBY ARBOLEDA MD Ot Z12.3 1 ENCNTR SCREEN MAMMOGRAM FOR MALIGNANT NE 08/17/2016 BARBY ARBOLEDA MD Ot Z12.3 1 ENCNTR SCREEN MAMMOGRAM FOR MALIGNANT NE 08/17/2016 Ot 715.36 LOC OSTEOARTH NOS-L/LEG 08/17/2016 Ot 791.9 ABN URINE FINDINGS NEC 08/17/2016 Ot V72.63 PRE -PROCEDURAL LABORATORY EXAMINATION 08/17/2016 Ot V72.83 EXA M PRE- OPERATIVE NEC 08/17/2016 Ot V74.8 SCRE EN-BACTERIAL DIS NEC 08/17/2016 Ot 244.9 HYPO THYROIDISM NOS 08/17/2016 Ot 401.9 HYPE RTENSION NOS 08/17/2016 Ot 427.89 CAR DIAC DYSRHYTHMIAS NEC 08/17/2016 Ot 447.9 BIBI RIAL DISEASE NOS 08/17/2016 Ot V45.89 POS TSURGICAL STATES NEC 08/17/2016 Ot V76.12 OTH SCREEN MAMMO- MALIGN NEOPLASM OF [place]IL[place] 08/17/2016 MAXIMILIANO DE ANDA DO Ot V58.61 ANTICOAGULANTS,LT,CURRENT USE 08/17/2016 MAXIMILIANO DE ANDA DO Ot V58.83 ENCOUNTER FOR THERAPEUTIC DRUG MONITORIN 08/17/2016 MAXIMILIANO DE ANDA DO Ot V58.61 ANTICOAGULANTS,LT,CURRENT USE 08/17/2016 MAXIMILIANO DE ANDA DO Ot V58.83 ENCOUNTER FOR THERAPEUTIC DRUG MONITORIN 08/17/2016 LURDES LEE APRN Ot 611.79 SYMPTOMS IN BREAST NEC 08/17/2016 MILADYS HEIN MD Ot M47.816 SPONDYLOSIS W/O MYELOPATHY OR RADICULOPA 08/17/2016 MILADYS HEIN MD Ot Z79.899 OTHER INFECTION CONTROL COORDINATOR (CURRENT) DRUG THERAPY 08/17/2016 BARBY ARBOLEDA MD Ot Z12.3 1 ENCNTR SCREEN MAMMOGRAM FOR MALIGNANT NE 08/17/2016 NKECHI ALVAREZ, BARBY Coleman Ot Z12.3 1 ENCNTR SCREEN MAMMOGRAM FOR MALIGNANT NE 08/17/2016 Ot 618.01 CYS TOCELE, MIDLINE 08/17/2016 Ot V72.63 PRE -PROCEDURAL LABORATORY EXAMINATION 08/17/2016 Ot V72.81 [id number] CARDIOVASCULAR 08/17/2016 Ot V74.8 SCRE EN-BACTERIAL DIS NEC 08/17/2016 Ot 733.90 BON E CARTILAGE DIS NOS 08/17/2016 Ot V49.81 ASY MPT POSTMENOPAUSAL STATUS (AGE-RELATE 08/17/2016 Ot 793.82 INC ONCLUSIVE MAMMOGRAM 08/17/2016 Ot V76.12 OTH SCREEN MAMMO- MALIGN NEOPLASM OF [place] 08/17/2016 Ot 793.89 OTH (ABN) FINDINGS ON RADIOLOGICAL EXAMI 08/17/2016 Ot 715.36 LOC OSTEOARTH NOS-L/LEG 08/17/2016 Ot 791.9 ABN URINE FINDINGS NEC 08/17/2016 Ot V72.63 PRE -PROCEDURAL LABORATORY EXAMINATION 08/17/2016 Ot V72.83 EXA M PRE- OPERATIVE NEC 08/17/2016 Ot V74.8 SCRE EN-BACTERIAL DIS NEC 08/17/2016 Ot 244.9 HYPO THYROIDISM NOS 08/17/2016 Ot 401.9 HYPE RTENSION NOS 08/17/2016 Ot 427.89 CAR DIAC DYSRHYTHMIAS NEC 08/17/2016 Ot 447.9 BIBI RIAL DISEASE NOS 08/17/2016 Ot V45.89 POS TSURGICAL STATES NEC 08/17/2016 Ot V76.12 OTH SCREEN MAMMO- MALIGN NEOPLASM OF [place] 08/17/2016 MAXIMILIANO DE ANDA DO Ot V58.61 ANTICOAGULANTS,LT,CURRENT USE 08/17/2016 MAXIMILIANO DE ANDA DO Ot V58.83 ENCOUNTER FOR THERAPEUTIC DRUG MONITORIN 08/17/2016 MAXIMILIANO DE ANDA DO Ot V58.61 ANTICOAGULANTS,LT,CURRENT USE 08/17/2016 MAXIMILIANO DE ANDA DO Ot V58.83 ENCOUNTER FOR THERAPEUTIC DRUG MONITORIN 08/17/2016 LURDES LEE APRN Ot 611.79 SYMPTOMS IN BREAST NEC 08/17/2016 MELVINA ALVAREZ, MILADYS Gordillo Ot M47.816 SPONDYLOSIS W/O MYELOPATHY OR RADICULOPA 08/17/2016 MILADYS HEIN MD Ot Z79.899 OTHER INTERMEDIATE (CURRENT) DRUG THERAPY 08/17/2016 BARBY ARBOLEDA MD Ot Z12.3 1 ENCNTR SCREEN MAMMOGRAM FOR MALIGNANT NE 08/17/2016 BARBY ARBOLEDA MD Ot Z12.3 1 ENCNTR SCREEN MAMMOGRAM FOR MALIGNANT NE 08/17/2016 BARBY ARBOLEDA MD Ot Z12.3 1 ENCNTR SCREEN MAMMOGRAM FOR MALIGNANT NE 08/17/2016 MILADYS HEIN MD Ot M47.816 SPONDYLOSIS W/O MYELOPATHY OR RADICULOPA 08/17/2016 MILADYS HEIN MD Ot M53. 3 SACROCOCCYGEAL DISORDERS, NOT ELSEWHERE 08/17/2016 MILADYS HEIN MD Ot Z79.899 OTHER INTERMEDIATE (CURRENT) DRUG THERAPY 08/24/2016 BARBY ARBOLEDA MD Ot Z12.3 1 ENCNTR SCREEN MAMMOGRAM FOR MALIGNANT NE 10/03/2016 BARBY ARBOLEDA MD Ot Z12.3 1 ENCNTR SCREEN MAMMOGRAM FOR MALIGNANT NE 10/18/2016 BARBY ARBOLEDA MD Ot Z12.3 1 ENCNTR SCREEN MAMMOGRAM FOR MALIGNANT NE 01/27/2017 JJ YO MD Ot E03 .9 HYPOTHYROIDISM, UNSPECIFIED 01/27/2017 JJ YO MD Ot I10 ESSENTIAL (PRIMARY) HYPERTENSION 01/27/2017 JJ YO MD Ot R07 .2 PRECORDIAL PAIN 01/27/2017 JJ YO MD Ot Z82.49 FAMILY HX OF ISCHEM HEART DIS AND OTH DI 01/31/2017 JJ YO MD Ot E03 .9 HYPOTHYROIDISM, UNSPECIFIED 01/31/2017 JJ YO MD Ot I10 ESSENTIAL (PRIMARY) HYPERTENSION 01/31/2017 JJ YO MD Ot R07 .2 PRECORDIAL PAIN 01/31/2017 JJ YO MD Ot Z82.49 FAMILY HX OF ISCHEM HEART DIS AND OTH DI 02/08/2017 KAHLIL ALVAREZ FACC, ALI FACP CCDS Ot 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 02/13/2017 KAHLIL MD FACC, ALI FACP CCDS Ot M54.5 LOW BACK PAIN 02/13/2017 KAHLIL MD FACC, ALI FACP CCDS Ot N18.3 CHRONIC KIDNEY DISEASE, STAGE 3 (MODERAT 02/13/2017 KAHLIL MD FACC, ALI FACP CCDS Ot R07.89 OTHER CHEST PAIN 02/13/2017 KAHLIL MD FACC, ALI FACP CCDS Ot 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 02/13/2017 KAHLIL MD FACC, ALI FACP CCDS Ot M54.5 LOW BACK PAIN 02/13/2017 KAHLIL MD FACC, ALI FACP CCDS Ot N18.3 CHRONIC KIDNEY DISEASE, STAGE 3 (MODERAT 02/13/2017 KAHLIL MD FACC, ALI FACP CCDS Ot R07.89 OTHER CHEST PAIN 02/13/2017 KAHLIL MD FACC, ALI FACP CCDS Ot 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 02/13/2017 KAHLIL MD FACC, ALI FACP CCDS Ot M54.5 LOW BACK PAIN 02/13/2017 KAHLIL MD FACC, ALI FACP CCDS Ot N18.3 CHRONIC KIDNEY DISEASE, STAGE 3 (MODERAT 02/13/2017 KAHLIL MD FACC, ALI FACP CCDS Ot R07.89 OTHER CHEST PAIN 02/13/2017 KAHLIL MD FACC, ALI FACP CCDS Ot 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 02/13/2017 KAHLIL MD FACC, ALI FACP CCDS Ot M54.5 LOW BACK PAIN 02/13/2017 KAHLIL MD FACC, ALI FACP CCDS Ot N18.3 CHRONIC KIDNEY DISEASE, STAGE 3 (MODERAT 02/13/2017 KAHLIL MD FACC, ALI FACP CCDS Ot R07.89 OTHER CHEST PAIN 02/18/2017 KAHLIL MD FACC, ALI FACP CCDS Ot 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 02/18/2017 KAHLIL MD FACC, ALI FACP CCDS Ot M54.5 LOW BACK PAIN 02/18/2017 KAHLIL MD FACC, ALI FACP CCDS Ot N18.3 CHRONIC KIDNEY DISEASE, STAGE 3 (MODERAT 02/18/2017 KAHLIL MD FACC, ALI FACP CCDS Ot R07.89 OTHER CHEST PAIN 03/08/2017 KAHLIL MD FACC, ALI FACP CCDS Ot 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 03/08/2017 KAHLIL MD FACC, ALI FACP CCDS Ot M54.5 LOW BACK PAIN 03/08/2017 KAHLIL MD FACC, ALI FACP CCDS Ot N18.3 CHRONIC KIDNEY DISEASE, STAGE 3 (MODERAT 03/08/2017 KAHLIL MD FACC, ALI FACP CCDS Ot R07.89 OTHER CHEST PAIN 03/19/2017 KAHLIL MD FACC, ALI FACP CCDS Ot 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 03/19/2017 KAHLIL MD FACC, ALI FACP CCDS Ot M54.5 LOW BACK PAIN 03/19/2017 KAHLIL MD FACC, ALI FACP CCDS Ot N18.3 CHRONIC KIDNEY DISEASE, STAGE 3 (MODERAT 03/19/2017 KAHLIL MD FACC, ALI FACP CCDS Ot R07.89 OTHER CHEST PAIN 04/18/2017 BARBY ARBOLEDA MD Ot D64.9 ANEMIA, UNSPECIFIED 07/25/2017 BARBY ARBOLEDA MD Ot Z12.3 1 ENCNTR SCREEN MAMMOGRAM FOR MALIGNANT NE 08/06/2017 BARBY ARBOLEDA MD Ot R92.0 MAMMOGRAPHIC MICROCALCIFICATION FOUND ON 08/06/2017 BARBY ARBOLEDA MD Ot Z12.3 1 ENCNTR SCREEN MAMMOGRAM FOR MALIGNANT NE 08/15/2017 Ot 715.36 LOC OSTEOARTH NOS-L/LEG 08/15/2017 Ot 791.9 ABN URINE FINDINGS NEC 08/15/2017 Ot V72.63 PRE -PROCEDURAL LABORATORY EXAMINATION 08/15/2017 Ot V72.83 EXA M PRE- OPERATIVE NEC 08/15/2017 Ot V74.8 SCRE EN-BACTERIAL DIS NEC 08/15/2017 Ot 244.9 HYPO THYROIDISM NOS 08/15/2017 Ot 401.9 HYPE RTENSION NOS 08/15/2017 Ot 427.89 CAR DIAC DYSRHYTHMIAS NEC 08/15/2017 Ot 447.9 BIBI RIAL DISEASE NOS 08/15/2017 Ot V45.89 POS TSURGICAL STATES NEC 08/15/2017 Ot V76.12 OTH SCREEN MAMMO- MALIGN NEOPLASM OF [place]IL[place] 08/15/2017 ADILSON MAXIMILIANO ALEJANDRE Ot V58.61 ANTICOAGULANTS,LT,CURRENT USE 08/15/2017 ADILSON DO MAXIMILIANO Maxi Ot V58.83 ENCOUNTER FOR THERAPEUTIC DRUG MONITORIN 08/15/2017 MAXIMILIANO DE ANDA DO Ot V58.61 ANTICOAGULANTS,LT,CURRENT USE 08/15/2017 MAXIMILIANO DE ANDA DO Ot V58.83 ENCOUNTER FOR THERAPEUTIC DRUG MONITORIN 08/15/2017 LURDES LEE APRN Ot 611.79 SYMPTOMS IN BREAST NEC 08/15/2017 MELVINA ALVAREZ, MILADYS Gordillo Ot M47.816 SPONDYLOSIS W/O MYELOPATHY OR RADICULOPA 08/15/2017 MILADYS HEIN MD Ot Z79.899 OTHER INFECTION CONTROL COORDINATOR (CURRENT) DRUG THERAPY 08/15/2017 BARBY ARBOLEDA MD Ot Z12.3 1 ENCNTR SCREEN MAMMOGRAM FOR MALIGNANT NE 08/15/2017 BARBY ARBOLEDA MD Ot Z12.3 1 ENCNTR SCREEN MAMMOGRAM FOR MALIGNANT NE 08/15/2017 BARBY ARBOLEDA MD Ot D64.9 ANEMIA, UNSPECIFIED 08/15/2017 BARBY ARBOLEDA MD Ot R92.0 MAMMOGRAPHIC MICROCALCIFICATION FOUND ON 08/15/2017 BARBY ARBOLEDA MD Ot Z12.3 1 ENCNTR SCREEN MAMMOGRAM FOR MALIGNANT NE 08/15/2017 LURDES LEE APRN Ot R92.2 INCONCLUSIVE MAMMOGRAM 08/16/2017 LURDES LEE APRN Ot R92.1 MAMMOGRAPHIC CALCIFCN FOUND ON DIAGNOSTI 08/16/2017 LURDES LEE APRN Ot R92.1 MAMMOGRAPHIC CALCIFCN FOUND ON DIAGNOSTI 08/28/2017 NKECHI MD, BARBY D Ot R92.0 MAMMOGRAPHIC MICROCALCIFICATION FOUND ON 08/28/2017 BARBY ARBOLEDA MD Ot Z12.3 1 ENCNTR SCREEN MAMMOGRAM FOR MALIGNANT NE 09/05/2017 LURDES LEE APRN Ot R92.1 MAMMOGRAPHIC CALCIFCN FOUND ON DIAGNOSTI 09/20/2017 Ot 722.4 CERV ICAL DISC DEGEN 09/20/2017 Ot 722.52 LUM B/LUMBOSAC DISC DEGEN 09/20/2017 Ot V76.12 OTH SCREEN MAMMO- MALIGN NEOPLASM OF [place] 09/20/2017 Ot 780.4 DIZZ INESS AND GIDDINESS 09/20/2017 Ot 785.1 PALP ITATIONS 09/20/2017 BARBY ARBOLEDA MD Ot V76.1 2 OTH SCREEN MAMMO-MALIGN NEOPLASM OF [place] 09/20/2017 MILADYS HEIN MD Ot 719. 45 JOINT PAIN-PELVIS 09/20/2017 MILADYS HEIN MD Ot 721. 0 CERVICAL SPONDYLOSIS 09/20/2017 MILADYS HEIN MD Ot 721. 3 LUMBOSACRAL SPONDYLOSIS 09/20/2017 MILADYS HEIN MD Ot 722. 52 LUMB/LUMBOSAC DISC DEGEN 09/20/2017 MILADYS HEIN MD Ot V58. 69 OTH MED,LT,CURRENT USE 09/20/2017 MILADYS HEIN MD Ot 721. 3 LUMBOSACRAL SPONDYLOSIS 09/20/2017 MILADYS HEIN MD Ot 715. 35 LOC OSTEOARTH NOS-PELVIS 09/20/2017 MILADYS HEIN MD Ot 719. 45 JOINT PAIN-PELVIS 09/20/2017 MILADYS HEIN MD Ot 721. 0 CERVICAL SPONDYLOSIS 09/20/2017 MILADYS HEIN MD Ot 722. 52 LUMB/LUMBOSAC DISC DEGEN 09/20/2017 MILADYS HEIN MD Ot 738. 4 ACQ SPONDYLOLISTHESIS 09/20/2017 Ot 722.4 CERV ICAL DISC DEGEN 09/20/2017 Ot 722.52 LUM B/LUMBOSAC DISC DEGEN 09/20/2017 Ot V76.12 OTH SCREEN MAMMO- MALIGN NEOPLASM OF [place] 09/20/2017 Ot 780.4 DIZZ INESS AND GIDDINESS 09/20/2017 Ot 785.1 PALP ITATIONS 09/20/2017 BARBY ARBOLEDA MD Ot V76.1 2 OTH SCREEN MAMMO-MALIGN NEOPLASM OF [place] 09/20/2017 MILADYS HEIN MD Ot 719. 45 JOINT PAIN-PELVIS 09/20/2017 MILADYS HEIN MD Ot 721. 0 CERVICAL SPONDYLOSIS 09/20/2017 MILADYS HEIN MD Ot 721. 3 LUMBOSACRAL SPONDYLOSIS 09/20/2017 MILADYS HEIN MD Ot 722. 52 LUMB/LUMBOSAC DISC DEGEN 09/20/2017 MILADYS HEIN MD Ot V58. 69 OTH MED,LT,CURRENT USE 09/20/2017 MILADYS HEIN MD Ot 721. 3 LUMBOSACRAL SPONDYLOSIS 09/20/2017 MILADYS HEIN MD Ot 715. 35 LOC OSTEOARTH NOS-PELVIS 09/20/2017 MILADYS HEIN MD Ot 719. 45 JOINT PAIN-PELVIS 09/20/2017 MILADYS HEIN MD Ot 721. 0 CERVICAL SPONDYLOSIS 09/20/2017 MILADYS HEIN MD Ot 722. 52 LUMB/LUMBOSAC DISC DEGEN 09/20/2017 MILADYS HEIN MD Ot 738. 4 ACQ SPONDYLOLISTHESIS 02/10/2018 BARBY ARBOLEDA MD Ot R92.8 OTH ABN AND INCONCLUSIVE FINDINGS ON DX 02/19/2018 BARBY ARBOLEDA MD Ot R92.1 MAMMOGRAPHIC CALCIFCN FOUND ON DIAGNOSTI 03/17/2018 BARBY ARBOLEDA MD Ot R92.1 MAMMOGRAPHIC CALCIFCN FOUND ON DIAGNOSTI 03/27/2018 BARBY ARBOLEDA MD Ot M54.9 DORSALGIA, UNSPECIFIED 03/27/2018 BARBY ARBOLEDA MD Ot R05 COUGH 03/27/2018 BARBY ARBOLEDA MD Ot R09.8 9 OTH SYMPTOMS AND SIGNS INVOLVING THE CIR 04/01/2018 BARBY ARBOLEDA MD Ot M54.9 DORSALGIA, UNSPECIFIED 04/01/2018 BARBY ARBOLEDA MD Ot R05 COUGH 04/01/2018 BARBY ARBOLEDA MD Ot R09.8 9 OTH SYMPTOMS AND SIGNS INVOLVING THE CIR 04/19/2018 BARBY ARBOLEDA MD Ot M54.9 DORSALGIA, UNSPECIFIED 04/19/2018 BARBY ARBOLEDA MD Ot R05 COUGH 04/19/2018 BARBY ARBOLEDA MD Ot R09.8 9 OTH SYMPTOMS AND SIGNS INVOLVING THE CIR 08/15/2018 KAHLIL ALVAREZ FACC, ALI FACP CCDS Ot 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 08/15/2018 KAHLIL ALVAREZ FACC, ALI FACP CCDS Ot M54.5 LOW BACK PAIN 08/15/2018 KAHLIL ALVAREZ FACC, ALI FACP CCDS Ot N18.3 CHRONIC KIDNEY DISEASE, STAGE 3 (MODERAT 08/15/2018 KAHLIL ALVAREZ FACC, ALI FACP CCDS Ot R07.89 OTHER CHEST PAIN 08/15/2018 KAHLIL ALVAREZ FACC, ALI FACP CCDS Ot 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 08/15/2018 KAHLIL MD FACC, ALI FACP CCDS Ot M54.5 LOW BACK PAIN 08/15/2018 KAHLIL ALVAREZ FACC, ALI FACP CCDS Ot N18.3 CHRONIC KIDNEY DISEASE, STAGE 3 (MODERAT 08/15/2018 KAHLIL ALVAREZ FACC, ALI FACP CCDS Ot R07.89 OTHER CHEST PAIN 08/15/2018 BARBY ARBOLEDA MD Ot R92.1 MAMMOGRAPHIC CALCIFCN FOUND ON DIAGNOSTI 08/15/2018 BARBY ARBOLEDA MD Ot M54.9 DORSALGIA, UNSPECIFIED 08/15/2018 BARBY ARBOLEDA MD Ot R05 COUGH 08/15/2018 BARBY ARBOLEDA MD Ot R09.8 9 OTH SYMPTOMS AND SIGNS INVOLVING THE CIR 08/15/2018 BARBY ARBOLEDA MD Ot Z12.3 1 ENCNTR SCREEN MAMMOGRAM FOR MALIGNANT NE 09/10/2018 BARBY ARBOLEDA MD Ot Z12.3 1 ENCNTR SCREEN MAMMOGRAM FOR MALIGNANT NE 10/20/2018 BARBY ARBOLEDA MD Ot V76.1 2 OTH SCREEN MAMMO-MALIGN NEOPLASM OF [place] 10/20/2018 MILADYS HEIN MD Ot 719. 45 JOINT PAIN-PELVIS 10/20/2018 MILADYS HEIN MD Ot 721. 0 CERVICAL SPONDYLOSIS 10/20/2018 MILADYS HEIN MD Ot 721. 3 LUMBOSACRAL SPONDYLOSIS 10/20/2018 MILADYS HEIN MD Ot 722. 52 LUMB/LUMBOSAC DISC DEGEN 10/20/2018 MILADYS HEIN MD Ot V58. 69 OTH MED,LT,CURRENT USE 10/20/2018 MILADYS HEIN MD Ot 721. 3 LUMBOSACRAL SPONDYLOSIS 10/20/2018 MELVINA ALVAREZ, MILADYS Gordillo Ot 715. 35 LOC OSTEOARTH NOS-PELVIS 10/20/2018 MELVINA ALVAREZ, MILADYS Gordillo Ot 719. 45 JOINT PAIN-PELVIS 10/20/2018 MELVINA ALVAREZ, MILADYS Gordillo Ot 721. 0 CERVICAL SPONDYLOSIS 10/20/2018 MELVINA ALVAREZ, MILADYS Gordillo Ot 722. 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, T 11/07/2018 HALLACY, EVANS D [employer]CEAN LIFEGUARD Ot M51.17 INTVRT DISC DISORDERS W RADICULOPATHY, L 11/11/2018 HALLACY, EVANS D [employer]CEAN LIFEGUARD Ot M43.16 SPONDYLOLISTHESIS, LUMBAR REGION 11/11/2018 HALLACY, EVANS D [employer]CEAN LIFEGUARD Ot M47.26 OTHER SPONDYLOSIS WITH RADICULOPATHY, EVA 11/11/2018 HALLACY, EVANS D [employer]CEAN LIFEGUARD Ot M48.061 SPINAL STENOSIS, LUMBAR REGION WITHOUT N 11/11/2018 HALLACY, EVANS D [employer]CE[employer] LIFEGUARD Ot 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, T 11/11/2018 HALLACY, EVANS D [employer]CEAN LIFEGUARD Ot M51.17 INTVRT DISC DISORDERS W RADICULOPATHY, L 05/14/2019 RUIZ UREÑA OCEAN LIFEGUARD Ot E03 .9 HYPOTHYROIDISM, UNSPECIFIED 05/14/2019 RUIZ UREÑA OCEAN LIFEGUARD Ot I10 ESSENTIAL (PRIMARY) HYPERTENSION 05/14/2019 RUIZ UREÑA APRN Ot M25.522 PAIN IN LEFT ELBOW 05/14/2019 RUIZ UREÑA APRN Ot S52.022A DISP FX OF OLECRAN PRO W/O INTARTIC EXTN 05/14/2019 UREÑA, RUIZ Gordillo APRN Ot W10.9XXA FALL (ON) (FROM) UNSPECIFIED STAIRS AND 05/14/2019 UREÑA, RUIZ Gordillo APRN Ot Z82.49 FAMILY HX OF ISCHEM HEART DIS AND OTH DI 05/14/2019 NIRANJAN, RUIZ Gordillo APRN Ot Z88 .8 ALLERGY STATUS TO OTH DRUG/MEDS/BIOL SUB 05/14/2019 UREÑA, RUIZ Gordillo APRN Ot Z90.89 ACQUIRED ABSENCE OF OTHER ORGANS 05/14/2019 UREÑA, RUIZ Gordillo APRN Ot Z96.641 PRESENCE OF RIGHT ARTIFICIAL HIP JOINT 05/17/2019UREÑA, RUIZ Gordillo APRN Ot E03 .9 HYPOTHYROIDISM, UNSPECIFIED 05/17/2019UREÑA, RUIZ Gordillo APRN Ot I10 ESSENTIAL (PRIMARY) HYPERTENSION 05/17/2019, RUIZ Gordillo APRN Ot R55 SYNCOPE AND COLLAPSE 05/17/2019, RUIZ Gordillo APRN Ot S01.01XA LACERATION WITHOUT FOREIGN BODY OF SCALP 05/17/2019UREÑA, RUIZ Gordillo APRN Ot S06.6X0A TRAUM SUBRAC HEM W/O LOSS OF CONSCIOUSNE 05/17/2019, RUIZ Gordillo APRN Ot W18.39XA OTHER FALL ON SAME LEVEL, INITIAL ENCOUN 05/17/2019 NIRANJAN, RUIZ Gordillo APRN Ot W22.8XXA STRIKING AGAINST OR STRUCK BY OTHER OBJE 05/17/2019 UREÑA, RUIZ Gordillo APRN Ot Z23 ENCOUNTER FOR IMMUNIZATION 05/17/2019 UREÑA, RUIZ Gordillo APRN Ot Z88 .8 ALLERGY STATUS TO OTH DRUG/MEDS/BIOL SUB 05/17/2019 UREÑA, RUIZ Gordillo APRN Ot Z90.89 ACQUIRED ABSENCE OF OTHER ORGANS 05/17/2019UREÑA, RUIZ Gordillo APRN Ot Z96.641 PRESENCE OF RIGHT ARTIFICIAL HIP JOINT 05/18/2019 NIRANJAN, RUIZ Gordillo APRN Ot E03 .9 HYPOTHYROIDISM, UNSPECIFIED 05/18/2019 UREÑA, RUIZ Gordillo APRN Ot I10 ESSENTIAL (PRIMARY) HYPERTENSION 05/18/2019 NIRANJAN, RUIZ Gordillo APRN Ot M25.522 PAIN IN LEFT ELBOW 05/18/2019 NIRANJAN, RUIZ Gordillo APRN Ot S52.022A DISP FX OF OLECRAN PRO W/O INTARTIC EXTN 05/18/2019 UREÑA, RUIZ Gordillo APRN Ot W10.9XXA FALL (ON) (FROM) UNSPECIFIED STAIRS AND 05/18/2019 UREÑA, RUIZ Gordillo APRN Ot Z82.49 FAMILY HX OF ISCHEM HEART DIS AND OTH DI 05/18/2019 UREÑA, RUIZ Gordillo APRN Ot Z88 .8 ALLERGY STATUS TO OTH DRUG/MEDS/BIOL SUB 05/18/2019 UREÑA, RUIZ Gordillo APRN Ot Z90.89 ACQUIRED ABSENCE OF OTHER ORGANS 05/18/2019 UREÑA, RUIZ Gordillo APRN Ot Z96.641 PRESENCE OF RIGHT ARTIFICIAL HIP JOINT 05/20/2019 UREÑA, RUIZ Gordillo APRN Ot E03 .9 HYPOTHYROIDISM, UNSPECIFIED 05/20/2019UREÑA, RUIZ Gordillo APRN Ot I10 ESSENTIAL (PRIMARY) HYPERTENSION 05/20/2019, RUIZ Gordillo APRN Ot M25.522 PAIN IN LEFT ELBOW 05/20/2019 UREÑA, RUIZ Gordillo APRN Ot S52.022A DISP FX OF OLECRAN PRO W/O INTARTIC EXTN 05/20/2019 NIRANJAN, RUIZ Gordillo APRN Ot W10.9XXA FALL (ON) (FROM) UNSPECIFIED STAIRS AND 05/20/2019 UREÑA, RUIZ Gordillo APRN Ot Z82.49 FAMILY HX OF ISCHEM HEART DIS AND OTH DI 05/20/2019 NIRANJAN, RUIZ Gordillo APRN Ot Z88 .8 ALLERGY STATUS TO OTH DRUG/MEDS/BIOL SUB 05/20/2019 NIRANJAN, RUIZ Gordillo APRN Ot Z90.89 ACQUIRED ABSENCE OF OTHER ORGANS 05/20/2019 UREÑA, RUIZ Gordillo APRN Ot Z96.641 PRESENCE OF RIGHT ARTIFICIAL HIP JOINT 05/20/2019 UREÑA, RUIZ Gordillo APRN Ot E03 .9 HYPOTHYROIDISM, UNSPECIFIED 05/20/2019, RUIZ Gordillo APRN Ot I10 ESSENTIAL (PRIMARY) HYPERTENSION 05/20/2019 NIRANJAN, RUIZ Gordillo APRN Ot R55 SYNCOPE AND COLLAPSE 05/20/2019 NIRANJAN, RUIZ Gordillo APRN Ot S01.01XA LACERATION WITHOUT FOREIGN BODY OF SCALP 05/20/2019 RUIZ UREÑA APRN Ot S06.6X0A TRAUM SUBRAC HEM W/O LOSS OF CONSCIOUSNE 05/20/2019 NIRANJAN, RUIZ Gordillo APRN Ot W18.39XA OTHER FALL ON SAME LEVEL, INITIAL ENCOUN 05/20/2019 RUIZ UREÑA APRN Ot W22.8XXA STRIKING AGAINST OR STRUCK BY OTHER OBJE 05/20/2019 RUIZ UREÑA APRN Ot Z23 ENCOUNTER FOR IMMUNIZATION 05/20/2019 RUIZ UREÑA APRN Ot Z88 .8 ALLERGY STATUS TO OT DRUG/MEDS/BIOL SUB 05/20/2019 RUIZ UREÑA APRN Ot Z90.89 ACQUIRED ABSENCE OF OTHER ORGANS 05/20/2019 RUIZ UREÑA APRN Ot Z96.641 PRESENCE OF RIGHT ARTIFICIAL HIP JOINT 09/22/2019 LURDES LEE APRN Ot Z12.31 ENCNTR SCREEN MAMMOGRAM FOR MALIGNANT NE 09/30/2019 LURDES LEE APRN Ot R92.8 OT ABN AND INCONCLUSIVE FINDINGS ON DX Procedures Code Description Performed By Blake gudino On 81.54 TOTA L KNEE REPLACEMENT 07/06/2014 Results Test Result Range Complete blood count (CBC) with automate d white blood cell (WBC) differential - 01/27/17 06:10 Blood leukocytes automated count (number/volume) 8.5 10*3/uL 4.3-11.0 Blood erythrocytes automated count (number/volume) 3.98 10*6/uL 4.35-5.85 Venous blood hemoglobin measurement (mass/volume) 12.1 g/dL 11.5-16.0 Blood hematocrit (volume fraction) 37 % 35-52 Automated erythrocyte mean corpuscular volume 94 [ foz_us] 80-99 Automated erythrocyte mean corpuscular h emoglobin (mass per erythrocyte) 30 pg 25-34 Automated erythrocyte mean corpuscular h emoglobin concentration measurement (mass/volume) 32 g/dL 32-36 Automated erythrocyte distribution width ratio 12. 6 % 10.0- 14.5 Automated blood platelet count (count/volume) 317 10*3/uL 130-400 Automated blood platelet mean volume measurement 10.9 [foz_us] 7.4-10.4 Automated blood neutrophils/100 leukocytes 47 % 42-75 Automated blood lymphocytes/100 leukocytes 33 % 12-44 Blood monocytes/100 leukocytes 12 % 0-12 Automated blood eosinophils/100 leukocytes 7 % 0-10 Automated blood basophils/100 leukocytes 1 % 0-10 Blood neutrophils automated count (number/volume) 4.0 10*3 1.8-7.8 Blood lymphocytes automated count (number/volume) 2.8 10*3 1.0-4.0 Blood monocytes automated count (number/volume) 1. 0 10*3 0.0-1.0 Automated eosinophil count 0.6 10*3/uL 0 .0-0.3 Automated blood basophil count (count/volume) 0.1 10*3/uL 0.0-0.1 Comprehensive metabolic panel - 01/27/17 06:10 Serum or plasma sodium measurement (moles/volume) 137 mmol/L 135-145 Serum or plasma potassium measurement (moles/volume) 4.5 mmol/L 3.6-5.0 Serum or plasma chloride measurement (moles/volume) 103 mmol/L 98-107 Carbon dioxide 23 mmol/L 21-32 Serum or plasma anion gap determination (moles/volume) 11 mmol/L 5-14 Serum or plasma urea nitrogen measurement (mass/volume ) 38 mg/dL 7-18 Serum or plasma creatinine measurement (mass/volume) 1.44 mg/dL 0.60-1.30 Serum or plasma urea nitrogen/creatinine mass ratio 26 NRG Serum or plasma creatinine measurement w ith calculation of estimated glomerular filtration rate 35 NRG Serum or plasma glucose measurement (mass/volume) 101 mg/dL 70-105 Serum or plasma calcium measurement (mass/volume) 10.5 mg/dL 8.5-10.1 Serum or plasma total bilirubin measurement (mass/volu me) 0.5 mg/dL 0.1-1.0 Serum or plasma alkaline phosphatase ciara surement (enzymatic activity/volume) 76 U/L 40-136 Serum or plasma aspartate aminotransfera se measurement (enzymatic activity/volume) 18 U/L 5-34 Serum or plasma alanine aminotransferase measurement (enzymatic activity/volume) 18 U/L 0-55 Serum or plasma protein measurement (mass/volume) 7.2 g/dL 6.4-8.2 Serum or plasma albumin measurement (mass/volume) 4.0 g/dL 3.2-4.5 Serum or plasma troponin i.cardiac measu rement (mass/volume) - 01/27/17 06:10 Serum or plasma troponin i.cardiac measurement (mass/v olume) < ng/mL <0.30 Serum or plasma troponin i.cardiac measu rement (mass/volume) - 01/27/17 09:09 Serum or plasma troponin i.cardiac measurement (mass/v olume) < ng/mL <0.30 ANEMIA ANALYZER - 03/29/17 10:41 Blood leukocytes automated count (number/volume) 5.8 10*3/uL 4.3-11.0 Blood erythrocytes automated count (number/volume) 3.89 10*6/uL 4.35-5.85 Venous blood hemoglobin measurement (mass/volume) 11.8 g/dL 11.5-16.0 Blood hematocrit (volume fraction) 37 % 35-52 Automated erythrocyte mean corpuscular volume 96 [ foz_us] 80-99 Automated erythrocyte mean corpuscular h emoglobin (mass per erythrocyte) 30 pg 25-34 Automated erythrocyte mean corpuscular h emoglobin concentration measurement (mass/volume) 32 g/dL 32-36 Automated erythrocyte distribution width ratio 13. 9 % 10.0- 14.5 Automated blood platelet count (count/volume) 308 10*3/uL 130-400 Automated blood platelet mean volume measurement 10.3 [foz_us] 7.4-10.4 Automated blood neutrophils/100 leukocytes 56 % 42-75 Automated blood lymphocytes/100 leukocytes 27 % 12-44 Blood monocytes/100 leukocytes 11 % NRG Automated blood eosinophils/100 leukocytes 5 % 0-10 Automated blood basophils/100 leukocytes 1 % 0-10 Blood neutrophils automated count (number/volume) 3.2 10*3 1.8-7.8 Blood lymphocytes automated count (number/volume) 1.6 10*3 1.0-4.0 Blood monocytes automated count (number/volume) 0. 7 10*3 0.0-1.0 Automated eosinophil count 0.3 10*3/uL 0 .0-0.3 Automated blood basophil count (count/volume) 0.1 10*3/uL 0.0-0.1 Manual blood segmented neutrophils/100 leukocytes 62 % NRG Blood band neutrophils/100 leukocytes 0 % NRG Manual blood lymphocytes/100 leukocytes 24 % NRG Manual eosinophils/100 leukocytes in nose 2 % NRG Manual blood basophils/100 leukocytes 1 % NRG Blood erythrocyte morphology finding identification NORMAL NRG Blood reticulocytes count (number/volume) 28 10*9/ L 24-90 Blood reticulocytes/100 erythrocytes 0.73 % 0.50-2.40 Serum or plasma folate measurement (mass /volume) - 03/29/17 10:41 Serum or plasma folate measurement (mass/volume) 1 6.4 ng/mL 1.5-24.0 Serum iron and total iron binding capaci ty panel - 03/29/17 10:41 Serum or plasma iron measurement (mass/volume) 49 ug/dL 35- 180 Total iron binding capacity and transferrin saturation measurement 13 L 15-50 Iron binding capacity [mass/volume] in serum or plasma 373 ug/dL 280-380 UIBC (unsaturated iron binding capacity) 324 ug/dL 55-450 Cyanocobalamin measurement - 03/29/17 10 :41 Vitamin B12 422 pg/mL 200-1000 Complete blood count (CBC) with automate d white blood cell (WBC) differential - 05/17/19 15:58 Blood leukocytes automated count (number/volume) 12.4 10*3/uL 4.3-11.0 Blood erythrocytes automated count (number/volume) 3.47 10*6/uL 4.35-5.85 Venous blood hemoglobin measurement (mass/volume) 9.9 g/dL 11.5-16.0 Blood hematocrit (volume fraction) 32 % 35-52 Automated erythrocyte mean corpuscular volume 91 [ foz_us] 80-99 Automated erythrocyte mean corpuscular h emoglobin (mass per erythrocyte) 29 pg 25-34 Automated erythrocyte mean corpuscular h emoglobin concentration measurement (mass/volume) 31 g/dL 32-36 Automated erythrocyte distribution width ratio 14. 8 % 10.0- 14.5 Automated blood platelet count (count/volume) 446 10*3/uL 130-400 Automated blood platelet mean volume measurement 9.6 [foz_us] 7.4-10.4 Automated blood neutrophils/100 leukocytes 79 % 42-75 Automated blood lymphocytes/100 leukocytes 11 % 12-44 Blood monocytes/100 leukocytes 8 % 0-12 Automated blood eosinophils/100 leukocytes 2 % 0-10 Automated blood basophils/100 leukocytes 0 % 0-10 Blood neutrophils automated count (number/volume) 9.7 10*3 1.8-7.8 Blood lymphocytes automated count (number/volume) 1.4 10*3 1.0-4.0 Blood monocytes automated count (number/volume) 1. 0 10*3 0.0-1.0 Automated eosinophil count 0.3 10*3/uL 0 .0-0.3 Automated blood basophil count (count/volume) 0.0 10*3/uL 0.0-0.1 PT panel in platelet poor plasma by coag ulation assay - 05/17/19 15:58 Prothrombin time (PT) in platelet poor plasma by coagu lation assay 13.9 s 12.2-14.7 INR in platelet poor plasma or blood by coagulation as say 1.0 0.8-1.4 Comprehensive metabolic panel - 05/17/19 15:58 Serum or plasma sodium measurement (moles/volume) 138 mmol/L 135-145 Serum or plasma potassium measurement (moles/volume) 4.7 mmol/L 3.6-5.0 Serum or plasma chloride measurement (moles/volume) 103 mmol/L 98-107 Carbon dioxide 23 mmol/L 21-32 Serum or plasma anion gap determination (moles/volume) 12 mmol/L 5-14 Serum or plasma urea nitrogen measurement (mass/volume ) 28 mg/dL 7-18 Serum or plasma creatinine measurement (mass/volume) 1.08 mg/dL 0.60-1.30 Serum or plasma urea nitrogen/creatinine mass ratio 26 NRG Serum or plasma creatinine measurement w ith calculation of estimated glomerular filtration rate 48 NRG Serum or plasma glucose measurement (mass/volume) 121 mg/dL 70-105 Serum or plasma calcium measurement (mass/volume) 9.4 mg/dL 8.5-10.1 Serum or plasma total bilirubin measurement (mass/volu me) 0.6 mg/dL 0.1-1.0 Serum or plasma alkaline phosphatase ciara surement (enzymatic activity/volume) 79 U/L 40-136 Serum or plasma aspartate aminotransfera se measurement (enzymatic activity/volume) 23 U/L 5-34 Serum or plasma alanine aminotransferase measurement (enzymatic activity/volume) 30 U/L 0-55 Serum or plasma protein measurement (mass/volume) 6.7 g/dL 6.4-8.2 Serum or plasma albumin measurement (mass/volume) 3.6 g/dL 3.2-4.5 CALCIUM CORRECTED 9.7 mg/dL 8.5-10.1 Serum or plasma troponin i.cardiac measu rement (mass/volume) - 05/17/19 15:58 Serum or plasma troponin i.cardiac measurement (mass/v olume) < ng/mL <0.028 Encounters ACCT No. Visit Date/Time Discharge Status Pt. Type Provider Facility Loc./Unit Complaint [id number] 10/16/2019 08:30:00 10/16/2019 23:59: 59 CLS Outpatient ZUNILDA KARYN [facility] [id number] 09/25/2019 13:33:00 23:59:59 CLS Outpatient LURDES LEE [employer] [facility] RAD ABN MAMMO [id number] 09/18/2019 15:21:00 23:59:59 CLS Outpatient LURDES LEE APRN [facility] RAD SCREENING [id number] 05/17/2019 14:00:00 17:15:00 DIS Emergency RUIZ UREÑA [employer]ARD [facility] ER FALL [id number] 05/14/2019 18:14:00 19:48:00 DIS Emergency RUIZ UREÑA [employer]GUARD [facility] ER FELL,LEFT ELBOW INJ [id number] 11/05/2018 11:23:00 23:59:59 CLS Outpatient EVANS PERALTA [employer]ARD [facility] RAD LUMBAR RADICULO TARIQ [id number] 08/15/2018 10:31:00 23:59:59 CLS Outpatient BARBY ARBOLEDA MD [facility] RAD SCREENING [id number] 03/26/2018 10:33:00 23:59:59 CLS Outpatient BARBY ARBOLEDA MD [facility] RAD BACK PAIN,COUGH [id number] 02/17/2018 13:27:00 23:59:59 CLS Outpatient BARBY ARBOLEDA MD [facility] RAD 6 MO FOLLOW UP [id number] 08/15/2017 09:18:00 23:59:59 CLS Outpatient LURDES LEE [employer] [facility] RAD ABNORMAL MAMMO [id number] 08/05/2017 09:17:00 018 23:59:59 CLS Outpatient BARBY ARBOLEDA MD [facility] RAD SCREENING [id number] 03/29/2017 10:29:00 017 23:59:59 CLS Outpatient BARBY ARBOLEDA MD [facility] LAB D50.9 [id number] 02/25/2017 10:24:00 017 23:59:59 CLS Outpatient KAHLIL ALVAREZ FACC, PHILIPPE PERERAP CC DS [facility] CARD R07.89 CHES T DISCOMFORT [id number] 02/07/2017 07:40:00 017 23:59:59 CLS Outpatient KAHLIL ALVAREZ FACC, PHILIPPE PERERAP CC DS [facility] CARD R07.89 [id number] 01/27/2017 06:09:00 017 11:32:00 DIS Emergency JJ YO MD [facility] ER CP/BACK PAIN [id number] 08/17/2016 07:20:00 017 08:20:00 DIS Outpatient MILADYS HEIN MD [facility] CARD M53.3 [id number] 07/31/2016 11:09:00 017 23:59:59 CLS Outpatient BARBY ARBOLEDA MD [facility] RAD SCREENING [id number] 09/16/2015 10:51:00 016 12:28:00 DIS Outpatient MILADYS HEIN MD [facility] CARD SACROCOCCYGEAL DISORDER [id number] 07/08/2015 10:19:00 016 23:59:59 CLS Outpatient BARBY ARBOLEDA MD [facility] RAD SCREENING [id number] 07/01/2015 07:34:00 016 08:25:00 DIS Outpatient MILADYS HEIN MD [facility] CARD SACROCCOCYGEAL DISORDER [id number] 06/10/2015 08:06:00 016 09:11:00 DIS Outpatient MILADYS HEIN MD [facility] 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 [id number] 02/11/2015 10:54:00 23:59:59 CLS Outpatient MILADYS HEIN MD [facility] CARD SPONDYLOSIS [id number] 10/01/2014 07:53:00 08:34:00 DIS Outpatient MILADYS HEIN MD [facility] LUMBAR SPONDYLOSIS [id number] 07/29/2014 10:30:00 23:59:59 CLS Outpatient LURDES LEE APRN [facility] RAD BREAST DRAINAGE [id number] 07/22/2014 10:32:00 23:59:59 CLS Outpatient MAXIMILIANO DE ANDA DO [facility] ANTICOAG THERAP Y [id number] 07/15/2014 11:50:00 23:59:59 CLS Outpatient MAXIMILIANO DE ANDA DO [facility] ANTICOAG THERAP Y [id number] 01/29/2014 08:45:00 10:10:00 DIS Outpatient MILADYS HEIN MD [facility] LUMBAR SPONDOLOYSIS [id number] 11/04/2013 13:17:00 014 15:36:00 DIS Outpatient MILADYS HEIN MD [facility] REHAB CERVICALGIA [id number] 09/28/2013 13:41:00 014 14:23:00 DIS Outpatient MILADYS HEIN MD [facility] LUMBAR SPONDOLOYSIS [id number] 07/17/2013 07:05:00 014 23:59:59 CLS Outpatient MILADYS HEIN MD [facility] LUMBAR SPONDYLOSIS [id number] 07/10/2013 11:20:00 014 23:59:59 CLS Outpatient MILADYS HEIN MD [facility] RAD LUMBAGO,PAIN IN NECK [id number] 07/10/2013 10:03:00 014 23:59:59 CLS Outpatient MILADYS HEIN MD [facility] CARD LUMBAR SPONDYLOSIS [id number] 06/09/2013 10:42:00 23:59:59 CLS Outpatient BARBY ARBOLEDA MD [facility] RAD SCREENING [id number] 11/21/2012 07:48:00 00:01:00 DIS Outpatient BARBY ARBOLEDA MD [facility] CARD DIZZINESS,PALP [id number] 12/19/2012 12:34:00 20:15:00 DIS Outpatient KAHLIL ALVAREZ FACC, PHILIPPE FACP CC DS [facility] CATH SOB,PALPITA TIONS [id number] 10/22/2019 12:02:[address] Outpatient BARBY ARBOLEDA MD [facility] RAD CHRONIC HEADACHE,H/O SUBARAC HNOID HEMORRHAGE [id number] 07/06/2014 10:21:00 Document Registration [id number] 07/05/2014 10:55:00 Document Registration [id number] 06/23/2014 10:08:00 Document Registration [id number] 06/11/2014 09:34:00 Document Registration [id number] 02/20/2013 00:00:00 Document Registration [id number] 07/17/2012 13:07:00 Document Registration [id number] 04/25/2012 13:17:00 Document Registration [id number] 10/23/2011 12:54:00 Document Registration [id number] 05/07/2011 09:07:00 Document Registration [id number] 04/18/2011 08:14:00 Document Registration [id number] 04/12/2011 08:30:00 Document Registration [id number] 03/05/2011 05:35:00 Document Registration [id number] 02/26/2011 12:12:00 Document Registration [id number] 02/26/2011 12:00:00 Document Registration [id number] 12/20/2009 05:48:00 Document Registration
--- NOTE | 2019-10-23 05:14 | ED Fall/Injury ---
General Chief Complaint: Trauma-Non Activation Stated Complaint: FALL,HEAD & HIP PAIN Nursing Triage Note: Pt to RM 5 via [facility] with c/o left hip pain and left posterior head pain after falling last night approx 2300 trying to turn off a light switch. Pt states they hit head but denies LOC. Source: patient (ROSENDO FINK DO) History of Present Illness Date Seen by Provider: Oct 23, 2019 Time Seen by Provider: 04:42 Initial Comments PT ARRIVES VIA EMS FROM HOME, WITH CERVICAL COLLAR IN PLACE PT STATES AROUND 2300 TONIGHT, SHE WAS REACHING TO TURN ON THE LIGHT, AND LOST HER BALANCE AND STARTED TO FALL FORWARD THROUGH THE DOORWAY, AND SOMEHOW TWISTED AROUND AND ENDED UP FALLING ON HER BACK, HITTING THE BACK OF HER HEAD C/O PAIN TO BACK OF HEAD C/O LEFT HIP PAIN C/O NECK AND BACK PAIN --BOTH ARE CHRONIC AND NO DIFFERENT THAN HER NORMAL, PER PT. STATES SHE WAS ABLE TO GET UP WITH HELP FROM HER HAS NOT TAKEN ANYTHING FOR PAIN NO LOSS OF CONSCIOUSNESS NO DIZZINESS NO PARESTHESIAS OR MOTOR DEFICITS NO CHEST PAIN NO NAUSEA/VOMITING NO VISION CHANGES HAD PELVIS FRACTURE IN APRIL OF THIS YEAR. NO SURGERY. NO FEVER OR RECENT ILLNESS Location Injury Occurred: bedroom PCP: DR. ARBOLEDA (ROSENDO FINK DO) Allergies and Home Medications Allergies Coded Allergies: diclofenac potassium (Verified Allergy, Mild, RASH, 05/07/11) Home Medications Acetaminophen 500 Mg Tablet, 2 TAB PO daily prn PRN for PAIN, (Reported) prn pain Cholecalciferol (Vitamin D3) 2,000 Unit Capsule, 2,000 UNIT PO DAILY, (Reported) Hydrocodone Bit/Acetaminophen 1 Tab Tab, 1 EACH PO Q4-6HR PRN for PAIN-MODERATE Prescribed by: RUIZ UREÑA on 05/14/191924 Iron Polysaccharides Complex 150 Mg Cap, 150 MG PO BID WITH MEALS Prescribed by: ELAINE GONSALEZ on 07/09/14 1111 Levothyroxine Sodium 88 Mcg Tablet, 88 MCG PO DAILY, (Reported) Metoprolol Succinate 50 Mg Tab.sr.24h, 50 MG PO DAILY, (Reported) Patient Home Medication List Home Medication List Reviewed: Yes (ISABEL DAMICO) Review of Systems Review of Systems Constitutional: no symptoms reported; No dizziness Eyes: No Symptoms Reported Ears, Nose, Mouth, Throat: no symptoms reported Respiratory: no symptoms reported; No cough, No short of breath Cardiovascular: no symptoms reported; No chest pain Gastrointestinal: no symptoms reported; No abdominal pain, No nausea, No vomiting Genitourinary: no symptoms reported Musculoskeletal: see HPI, back pain, neck pain, other (LEFT HIP PAIN ) Skin: no symptoms reported Psychiatric/Neurological: See HPI; Denies Numbness, Denies Paresthesia, Denies Tingling, Denies Weakness (ROSENDO FINK DO) Past Qxkpkmd-Cxqbjx-Xfqduz Hx Past Med/Social Hx: Reviewed and Corrections made (ROSENDO FINK DO) Patient Social History Alcohol Use: Denies Use Recreational Drug Use: No Smoking Status: Never a Smoker 2nd Hand Smoke Exposure: No Recent Foreign Travel: No Contact w/Someone Who Travel: No Recent Infectious Disease Expo: No Recent Hopitalizations: No Physical Abuse: No Sexual Abuse: No Mistreated: No Fear: No (ROSENDO FINK DO) Immunizations Up To Date Tetanus Booster (TDap): More than 5yrs Date of Pneumonia Vaccine: Jan 20, 2013 Date of Influenza Vaccine: Jan 21, 2019 (ROSENDO FINK DO) Seasonal Allergies Seasonal Allergies: No (ROSENDO FINK DO) Past Medical History Surgeries: Yes (I & D ABSCESS ON LEG;L CAROTID ENDART;R HIP REPLACED;BILAT TKR;ANTERIOR REP) Joint Replacement, Orthopedic, Tonsillectomy Respiratory: No Cardiac: Yes Hypertension Neurological: No Reproductive Disorders: Yes (ANT REPAIR) FOOD MOBILE DRIVER History: Menopausal Sexually Transmitted Disease: No Genitourinary: No Gastrointestinal: No Musculoskeletal: Yes (CHRONIC NECK AND BACK PAIN; BILAT TKR;R HIP REPLACEMENT) Arthritis, Chronic Back Pain Endocrine: Yes Hypothyroidsim HEENT: No Cancer: No Psychosocial: No Integumentary: No Blood Disorders: No (ROSENDO FINK DO) Family Medical History Abdominal aortic aneurysm 19 FATHER Alcoholism 19 FATHER Cardiovascular disease 19 FATHER 19 MOTHER G8 BROTHER Hypertension 19 FATHER 19 MOTHER G8 BROTHER Myocardial infarction 19 MOTHER No Family History of: AIDS Alzheimer's disease Arthritis Asthma Cancer of mouth Colon cancer Completed stroke Dementia Diabetes mellitus Drug abuse Kidney disease Parkinson's disease Prostate cancer Psychosocial problem Respiratory disorder Seizure disorder Thyroid disease Tuberculosis Physical Exam Vital Signs Vital Signs - First Documented 10/23/19 04:48 Temp 36.8 Pulse 91 Resp 20 B/P (MAP) 143/97 (112) Pulse Ox 95 O2 Delivery Room Air (ISABEL DAMICO) Vital Signs Capillary Refill : Less Than 3 Seconds (ROSENDO FINK DO) Height, Weight, BMI Height: 5'2.00" Weight: 148lbs. 0.0oz. 67.222078uh; 22.00 BMI Method:Stated General Appearance: WD/WN, no apparent distress HEENT: PERRL/EOMI, normal ENT inspection Neck: tender lateral, tender midline Cardiovascular: normal peripheral pulses, regular rate, rhythm, no murmur Respiratory: chest non-tender, normal breath sounds, no respiratory distress, no accessory muscle use Peripheral Pulses: 3+ Dorsalis Pedis (R), 3+ Left Dors-Pedis (L), 3+ Radial Pulses (R), 3+ Radial Pulses (L) Gastrointestinal: normal bowel sounds, non tender, soft Back: other (DIFFUSE TENDERNESS) Extremities: no pedal edema, normal capillary refill, other (BILATERAL HIP TENDERNESS) 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 CT Imaging of left hip pending. Patient belongs to Dr. Arboleda. Previous orthopedic surgeon was Dr. Winters for her back and Dr. Gong did her right hip. At baseline patient ambulates with a cane. Progress Note #2: Time: 07:36 Progress Note Left voicemail with her . Updated patient and answered questions. (ISABEL DAMICO) Diagnostic Imaging Comments CT HEAD/CERVICAL SPINE--NO ACUTE PROCESS, PER [facility] VIA FAX AT 0524 CT THORACIC/LUMBAR SPINE--NO ACUTE PROCESS, PER [facility] VIA FAX AT 1842 Reviewed: Reviewed by Me (ROSENDO FINK DO) Diagonstic Imaging: Xray Plain Films/CT/US/NM/MRI: chest Comments [email or web address] [place] [place] NAME: VANDANA CAMPBELL [facility] REC#: [id number] PT STATUS: REG ER : 1930 PHYSICIAN: ROSENDO FINK DO ADMIT DATE: 10/23/19/ER Draft Date of Exam:10/23/19 CHEST 1 VIEW, AP/PA ONLY INDICATION: Fall. Trauma. COMPARISON: 03/26/2018 FINDINGS: Single frontal view of the chest demonstrates normal heart size and pulmonary vascularity. The lungs show low inspiratory volumes with asymmetric elevation of the right hemidiaphragm, but are otherwise clear. No large pleural effusion or pneumothorax is seen. The visualized osseous structures show no acute abnormalities. Calcified aortic atherosclerosis is noted. IMPRESSION: 1. No acute cardiopulmonary process. Dictated on workstation # [id number] Dict: 10/23/19 0622 Trans: 10/23/19 0624 [facility] [id number] Interpreted by: MARTY PORTER MD Electronically signed by: Reviewed: Reviewed by Nv Diagonstic Imaging: CT Plain Films/CT/US/NM/MRI: c-spine, head Comments [email or web address] [place] [place] NAME: VANDANA CAMPBELL [facility] REC#: [id number] PT STATUS: REG ER : 1930 PHYSICIAN: ROSENDO FINK DO ADMIT DATE: 10/23/19/ER Draft Date of Exam:10/23/19 CT HEAD/CERVICAL SPINE WO PROCEDURE: CT head and CT cervical spine without contrast. TECHNIQUE: Multiple contiguous axial images were obtained through the brain and cervical spine without the use of intravenous contrast. Sagittal and coronal reformations through the cervical spine were then performed. Auto Exposure Controls were utilized during the CT exam to meet ALARA standards for radiation dose reduction. INDICATION: Head pain status post fall. Trauma. COMPARISON: 10/22/2019 FINDINGS: CT head: The ventricles and cortical sulci are diffusely prominent, compatible with age-related volume loss. There are confluent areas of abnormal, low attenuation in the periventricular white matter. This is consistent with chronic small vessel ischemic changes. There is no midline shift or mass-effect. No acute intra-axial hemorrhage is seen. There are no abnormal areas of increased or decreased density to suggest acute hemorrhage or edema. No extra-axial masses or collections are present. The bony calvarium is intact. The visualized paranasal sinuses are unremarkable. The mastoid air cells are clear. CT cervical spine: Evaluation of the static alignment demonstrates mild grade 1 anterolisthesis at the C4-C5, C6-C7, and T2-T3 levels. There is also mild grade 1 retrolisthesis at C5-C6. These findings are stable compared to prior exam and may be on the basis of underlying degenerative changes. There is no evidence of jumped facets. Vertebral body heights are maintained. There is no acute fracture. No bony fragments are seen within the spinal canal. There are advanced multilevel degenerative changes consisting of intervertebral disc height loss with anterior and posterior disc osteophyte complex formations, as well as multilevel facet arthropathy. Pre and paravertebral soft tissue structures are unremarkable. Note is made of calcified carotid atherosclerosis. Included portions of lung apices show no additional acute abnormalities. IMPRESSION: 1. No acute intracranial abnormality. No CT evidence of mass, acute infarct or intracranial hemorrhage. 2. Chronic small vessel ischemic changes in deep white matter. 3. No acute fracture or dislocation in the cervical spine. 4. 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 Dictated on workstation # [id number] Dict: 10/23/19 0617 Trans: 10/23/19 0623 [facility] [id number] Interpreted by: MARTY PORTER MD Electronically signed by: Reviewed: Reviewed by Me Diagonstic Imaging: Xray Plain Films/CT/US/NM/MRI: pelvis, hip Comments NAME: VANDANA CAMPBELL [facility] REC#: [id number] PT STATUS: REG ER : 1930 PHYSICIAN: ROSENDO FINK DO ADMIT DATE: 10/23/19/ER Draft Date of Exam:10/23/19 PELVIS/ANAIS HIPS 5> VIEWS INDICATION: Fall. Trauma. COMPARISON: 07/10/2013 FINDINGS: Frontal radiograph view of the pelvis and dedicated radiographic views of the bilateral hips were obtained. There is abnormal angulation of the left femoral neck and abnormal overlapping of the left femoral head and left femoral neck. Findings are concerning for acute subcapital fracture impaction. Femoral acetabular joint space on the left is maintained. On the right, there expected postsurgical changes previous total hip replacement. Femoral and acetabular components appear well seated and well positioned in respect to one another. There is no evidence of periprosthetic fracture. There is no evidence of hardware dislocation. Old deformity of the right superior and inferior pubic rami are noted consistent with old fractures. Pubic symphysis and SI joints are symmetric. No unexpected radiopaque foreign bodies are seen. IMPRESSION: 1. Findings concerning for acute fracture of the proximal left femur as described above. 2. Expected postsurgical changes of previous total right hip replacement. No evidence of periprosthetic fracture or loosening. Dictated on workstation # [id number] Dict: 10/23/19622 Trans: 10/23/19629 [id number] Interpreted by: MARTY PORTER MD Electronically signed by: Reviewed: Reviewed by Me Diagonstic Imaging: CT Plain Films/CT/US/NM/MRI: hip (l) Comments [facility] [place] [place] NAME: VANDANA CAMPBELL [facility] REC#: [id number] PT STATUS: REG ER : 1930 PHYSICIAN: ROSENDO FINK DO ADMIT DATE: 10/23/19/ER Draft Date of Exam:10/23/19 CT EXTREMITY LOWER LEFT WO PROCEDURE: CT left lower extremity without contrast. TECHNIQUE: Multiple contiguous axial images were obtained through the left lower extremity without the use of intravenous contrast. Sagittal and coronal reformations were then performed. Auto Exposure Controls were utilized during the CT exam to meet ALARA standards for radiation dose reduction. INDICATION: Fall. Left hip pain. Abnormal radiograph. COMPARISON: Hip and pelvis radiographs from earlier same day FINDINGS: This exam confirms acute subcapital fracture of the proximal left femur. There is impaction at the fracture site, greatest involving the superior margins. This does result in abnormal valgus angulation of the distal fracture fragment. Femoral acetabular joint space, however, remains intact. Included portions of the left hemipelvis again show chronic appearing deformity of the left sacral ala suspicious for chronic insufficiency fracture. Surrounding soft tissue structures are unremarkable. No unexpected radiopaque foreign bodies are seen. There is calcified atherosclerosis. IMPRESSION: 1. Acute fracture of the proximal left femur as described above. Dictated on workstation # [id number] Dict: 10/23/19 0640 Trans: 10/23/19 0702 [facility] [id number] Interpreted by: MRATY PORTER MD Electronically signed by: Reviewed: Reviewed by Me Diagonstic Imaging: CT Plain Films/CT/US/NM/MRI: other (thoracolumbar spine) Comments [email or web address] [place] [place] NAME: VANDANA CAMPBELL [facility] REC#: [id number] PT STATUS: REG ER : 1930 PHYSICIAN: ROSENDO FINK DO ADMIT DATE: 10/23/19/ER Draft Date of Exam:10/23/19 CT THORACIC/LUMBAR SPINE WO PROCEDURE: CT thoracic and lumbar spine without contrast. TECHNIQUE: Multiple contiguous axial images were obtained through the thoracic and lumbar spine without the use of intravenous contrast. Sagittal and coronal reformations were then performed. All CT scans use one or more of the following dose optimizing techniques: automated exposure control, MA and/or KvP adjustment based on a patient size and exam type, or iterative reconstruction. INDICATION: Left hip pain status post fall. COMPARISON: None FINDINGS: CT thoracic spine: Evaluation of static alignment shows slight grade 1 anterolisthesis of T2 on T3, which may be related to underlying degenerative changes. This is stable compared to prior exams. There is no evidence of jumped facets. Vertebral body heights are maintained. There is no acute fracture. No bony fragments are seen within the spinal canal. Mild multilevel degenerative changes are noted and consistent primarily of intervertebral disc height loss with mild anterior disc osteophyte complex formations and multilevel facet arthropathy. Included portions of the lungs are clear. There is calcified aortic atherosclerosis. CT lumbar spine: There is mild anterolisthesis at L4-L5. There is no evidence of jumped facets. Vertebral body heights are maintained. There is no acute fracture. No bony fragments are seen within the spinal canal. Moderate multilevel degenerative changes are noted, greatest at L3-L4 through L5-S1. This consists of intervertebral disc height loss with prominent anterior posterior disc osteophyte complex formations, as well as multilevel facet arthropathy. This does result in multilevel spinal canal or neuroforaminal stenosis, greatest at the L3-L4 and L4-L5 levels. Pre and paravertebral soft tissue structures are unremarkable. Note is also made of sclerotic appearance of the bilateral sacral ala as well as chronic appearing deformities of the superior cortices. Findings are suggestive of old insufficiency fractures. Please note, left hip is not significantly included on this exam. IMPRESSION: 1. No acute fracture or dislocation of the thoracic or lumbar spine. 2. Deformity of the bilateral sacral ala. Again, this is favored to represent old sacral alar fractures. Correlation with tenderness to this area however is advised. If there is concern for acute fracture of the sacrum, MRI is recommended. Dictated on workstation # [id number] Dict: 10/23/19 0631 Trans: 10/23/19 07 CV [id number] Interpreted by: MARTY PORTER MD Electronically signed by: Reviewed: Reviewed by Me (ISABEL DAMICO) Departure Impression Primary Impression: Hip fracture, left Qualified Codes: S72.002A - Fracture of unspecified part of neck of left femur, initial encounter for closed fracture Additional Impression: Fall Qualified Codes: W19.XXXA - Unspecified fall, initial encounter Disposition: 01 HOME, SELF-CARE Condition: Stable Transfer Transfer Reason: Exceeds level of care (No Ortho available.) Time Spoke to Accepting Phy: 07:[address] Rodolfo Welsh at [place] the emergency room accepts the patient in transfer as we are without local Orthopedic coverage. Transfer Facility: [place] emergency room at [place], [place] Method of Transfer: EMS (ISABEL DAMICO) Departure-Patient Inst. Referrals: BARBY ARBOLEDA MD (PCP/Family) Primary Care Physician Copy Copies To 1: BARBY ARBOLEDA MD, LISA K DO Oct 23, 2019 05:14 ISABEL DAMICO Oct 23, 2019 06:30
--- NOTE | 2019-10-23 06:23 | Diagnostic Imaging Report ---
PROCEDURE: CT head and CT cervical spine without contrast. TECHNIQUE: Multiple contiguous axial images were obtained through the brain and cervical spine without the use of intravenous contrast. Sagittal and coronal reformations through the cervical spine were then performed. Auto Exposure Controls were utilized during the CT exam to meet ALARA standards for radiation dose reduction. INDICATION: Head pain status post fall. Trauma. COMPARISON: 10/22/2019 FINDINGS: CT head: The ventricles and cortical sulci are diffusely prominent, compatible with age-related volume loss. There are confluent areas of abnormal, low attenuation in the periventricular white matter. This is consistent with chronic small vessel ischemic changes. There is no midline shift or mass-effect. No acute intra-axial hemorrhage is seen. There are no abnormal areas of increased or decreased density to suggest acute hemorrhage or edema. No extra-axial masses or collections are present. The bony calvarium is intact. The visualized paranasal sinuses are unremarkable. The mastoid air cells are clear. CT cervical spine: Evaluation of the static alignment demonstrates mild grade 1 anterolisthesis at the C4-C5, C6-C7, and T2-T3 levels. There is also mild grade 1 retrolisthesis at C5-C6. These findings are stable compared to prior exam and may be on the basis of underlying degenerative changes. There is no evidence of jumped facets. Vertebral body heights are maintained. There is no acute fracture. No bony fragments are seen within the spinal canal. There are advanced multilevel degenerative changes consisting of intervertebral disc height loss with anterior and posterior disc osteophyte complex formations, as well as multilevel facet arthropathy. Pre and paravertebral soft tissue structures are unremarkable. Note is made of calcified carotid atherosclerosis. Included portions of lung apices show no additional acute abnormalities. IMPRESSION: 1. No acute intracranial abnormality. No CT evidence of mass, acute infarct or intracranial hemorrhage. 2. Chronic small vessel ischemic changes in deep white matter. 3. No acute fracture or dislocation in the cervical spine. 4. 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 Dictated by: Dictated on workstation # [id number]
--- NOTE | 2019-10-23 06:24 | Diagnostic Imaging Report ---
INDICATION: Fall. Trauma. COMPARISON: 03/26/2018 FINDINGS: Single frontal view of the chest demonstrates normal heart size and pulmonary vascularity. The lungs show low inspiratory volumes with asymmetric elevation of the right hemidiaphragm, but are otherwise clear. No large pleural effusion or pneumothorax is seen. The visualized osseous structures show no acute abnormalities. Calcified aortic atherosclerosis is noted. IMPRESSION: 1. No acute cardiopulmonary process. Dictated by: Dictated on workstation # [id number]
--- NOTE | 2019-10-23 06:31 | Diagnostic Imaging Report ---
INDICATION: Fall. Trauma. COMPARISON: 07/10/2013 FINDINGS: Frontal radiograph view of the pelvis and dedicated radiographic views of the bilateral hips were obtained. There is abnormal angulation of the left femoral neck and abnormal overlapping of the left femoral head and left femoral neck. Findings are concerning for acute subcapital fracture impaction. Femoral acetabular joint space on the left is maintained. On the right, there expected postsurgical changes previous total hip replacement. Femoral and acetabular components appear well seated and well positioned in respect to one another. There is no evidence of periprosthetic fracture. There is no evidence of hardware dislocation. Old deformity of the right superior and inferior pubic rami are noted consistent with old fractures. Pubic symphysis and SI joints are symmetric. No unexpected radiopaque foreign bodies are seen. IMPRESSION: 1. Findings concerning for acute fracture of the proximal left femur as described above. 2. Expected postsurgical changes of previous total right hip replacement. No evidence of periprosthetic fracture or loosening. Dictated by: Dictated on workstation # [id number]
--- NOTE | 2019-10-23 07:01 | Diagnostic Imaging Report ---
PROCEDURE: CT thoracic and lumbar spine without contrast. TECHNIQUE: Multiple contiguous axial images were obtained through the thoracic and lumbar spine without the use of intravenous contrast. Sagittal and coronal reformations were then performed. All CT scans use one or more of the following dose optimizing techniques: automated exposure control, MA and/or KvP adjustment based on a patient size and exam type, or iterative reconstruction. INDICATION: Left hip pain status post fall. COMPARISON: None FINDINGS: CT thoracic spine: Evaluation of static alignment shows slight grade 1 anterolisthesis of T2 on T3, which may be related to underlying degenerative changes. This is stable compared to prior exams. There is no evidence of jumped facets. Vertebral body heights are maintained. There is no acute fracture. No bony fragments are seen within the spinal canal. Mild multilevel degenerative changes are noted and consistent primarily of intervertebral disc height loss with mild anterior disc osteophyte complex formations and multilevel facet arthropathy. Included portions of the lungs are clear. There is calcified aortic atherosclerosis. CT lumbar spine: There is mild anterolisthesis at L4-L5. There is no evidence of jumped facets. Vertebral body heights are maintained. There is no acute fracture. No bony fragments are seen within the spinal canal. Moderate multilevel degenerative changes are noted, greatest at L3-L4 through L5-S1. This consists of intervertebral disc height loss with prominent anterior posterior disc osteophyte complex formations, as well as multilevel facet arthropathy. This does result in multilevel spinal canal or neuroforaminal stenosis, greatest at the L3-L4 and L4-L5 levels. Pre and paravertebral soft tissue structures are unremarkable. Note is also made of sclerotic appearance of the bilateral sacral ala as well as chronic appearing deformities of the superior cortices. Findings are suggestive of old insufficiency fractures. Please note, left hip is not significantly included on this exam. IMPRESSION: 1. No acute fracture or dislocation of the thoracic or lumbar spine. 2. Deformity of the bilateral sacral ala. Again, this is favored to represent old sacral alar fractures. Correlation with tenderness to this area however is advised. If there is concern for acute fracture of the sacrum, MRI is recommended. Dictated by: Dictated on workstation # [id number]
--- NOTE | 2019-10-23 07:02 | Diagnostic Imaging Report ---
PROCEDURE: CT left lower extremity without contrast. TECHNIQUE: Multiple contiguous axial images were obtained through the left lower extremity without the use of intravenous contrast. Sagittal and coronal reformations were then performed. Auto Exposure Controls were utilized during the CT exam to meet ALARA standards for radiation dose reduction. INDICATION: Fall. Left hip pain. Abnormal radiograph. COMPARISON: Hip and pelvis radiographs from earlier same day FINDINGS: This exam confirms acute subcapital fracture of the proximal left femur. There is impaction at the fracture site, greatest involving the superior margins. This does result in abnormal valgus angulation of the distal fracture fragment. Femoral acetabular joint space, however, remains intact. Included portions of the left hemipelvis again show chronic appearing deformity of the left sacral ala suspicious for chronic insufficiency fracture. Surrounding soft tissue structures are unremarkable. No unexpected radiopaque foreign bodies are seen. There is calcified atherosclerosis. IMPRESSION: 1. Acute fracture of the proximal left femur as described above. Dictated by: Dictated on workstation # [id number]
--- NOTE | 2019-10-23 07:05 | NUR ---
Report to ROMEO Juarez
--- NOTE | 2019-10-23 07:32 | NUR ---
[facility] NOTIFIED OF TRANSFER TO [facility]
--- NOTE | 2019-10-23 07:34 | NUR ---
SPOKE WITH [facility] SHIFT CAPTAIN WILL, ADVISES WILL NOT BE ABLE TO TRANSFER PT UNTIL AFTER SHIFT CHANGE @ 0800
[2019-10-23] MEDS ORDERED: fentaNYL INJECTION 100 MCG/2 ML AMP IVP ONE ×2 (07:45→09:15)
--- NOTE | 2019-10-23 07:56 | NUR ---
0790 CONSENT FOR TRANSFER SIGNED
[2019-10-23 08:50] VITALS: BP 141/82
--- NOTE | 2019-10-23 08:54 | NUR ---
FENTANYL 50MCG GIVEN FOR PAIN PRIOR TO TRANSFER
== END 2019-10-23 09:00 | disposition short-term general hospital (02) ==
LOC: EDUNIT# 04:38 → ER 04:40
DX: S72.012A Unspecified intracapsular fracture of left femur, initial encounter for closed fracture (principal); I10 Essential (primary) hypertension; M19.90 Unspecified osteoarthritis, unspecified site; M54.9 Dorsalgia, unspecified; E03.9 Hypothyroidism, unspecified; W18.30XA Fall on same level, unspecified, initial encounter; Y92.009 Unspecified place in unspecified non-institutional (private) residence as the place of occurrence of the external cause; Z79.890 Hormone replacement therapy; Z96.653 Presence of artificial knee joint, bilateral; Z96.641 Presence of right artificial hip joint; Z79.899 Other long term (current) drug therapy; Z88.8 Allergy status to other drugs, medicaments and biological substances
CPT/HCPCS: 70450; 71045; 72125; 72128; 72131; 73523; 73700; 96374; 96376